=== PATIENT | male | born 1945 | race Caucasian/White ===

== ENCOUNTER 2017-07-27 12:36 | Inpatient (IN) ==
--- NOTE | 2017-07-27 12:42 | Emergency Department Note ---
Disposition Clinical Impression: Altered mental status Qualifiers: Altered mental status type: unspecified Qualified Code(s): R41.82 - Altered mental status, unspecified Urinary tract infection Qualifiers: Urinary tract infection type: acute cystitis Hematuria presence: without hematuria Qualified Code(s): N30.00 - Acute cystitis without hematuria Disposition: Admitted As Inpatient Condition: Good Time of Disposition: 15:39 Altered Mental Status HPI - General Chief Complaint: ED Altered Mental Status Stated Complaint: decreased responsiveness Time Seen by Provider: 07/27/17 12:38 Source: patient, EMS Mode of arrival: EMS Limitations: no limitations Nursing Notes Reviewed: Yes Vital Signs Reviewed: Yes - History of Present Illness HPI Narrative: 72-year-old fpc comes in stating not feeling well has had intermittent fevers states he feels like he did when he had diagnosis of UTI. On arrival here patient is awake and alert and answers questions appropriately. Report from fpc is that he is confused and less responsive. MD complaint: altered mental status Onset (ago): Just [employer] Pain Severity: mild Consistency of Symptoms: waxing and waning Associated symptoms: Reports: fever Treatments prior to arrival: other (None) - Related Data Home Medications Medication Instructions Recorded Confirmed Allopurinol [Zyloprim] 200 mg PO BID 06/14/15 07/27/17 Digoxin [Lanoxin] 0.125 mg PO DAILY 06/14/15 07/27/17 Diltiazem CD (24hr) [Cardizem CD] 120 mg PO DAILY 06/14/15 07/27/17 Fenofibrate 54 mg PO DAILY 06/14/15 07/27/17 Fluticasone Propionate Nasal 1 spray NS DAILY 06/14/15 07/27/17 [Flonase] Gabapentin [Neurontin] 600 mg PO HS 06/14/15 07/27/17 Metoprolol [Lopressor] 50 mg PO BID 06/14/15 07/27/17 Montelukast [Singulair] 10 mg PO HS 06/14/15 07/27/17 Omeprazole [PriLOSEC] 20 mg PO HS 06/14/15 07/27/17 Tamsulosin [Flomax] 0.4 mg PO DAILY 06/14/15 07/27/17 glipiZIDE [Glipizide] 15 mg PO DAILY 06/14/15 07/27/17 Gabapentin [Neurontin] 300 mg PO QAM 03/21/16 07/27/17 Erythromycin OPTH Oint 1 appl BOTH EYES HS 02/06/17 07/27/17 Furosemide [Lasix] 80 mg PO BID 02/06/17 07/27/17 Guaifenesin [Mucinex] 600 mg PO BID 02/06/17 07/27/17 Multivitamin [Multivitamins] 1 each PO DAILY 02/06/17 07/27/17 Primidone [Mysoline] 50 mg PO BID 02/06/17 07/27/17 Insulin DETEMIR [Levemir] 40 unit SQ HS 07/27/17 07/27/17 Insulin Regular, Human [Novolin R] 10 unit SQ TID 07/27/17 07/27/17 Lisinopril [Zestril] 5 mg PO DAILY 07/27/17 07/27/17 Oxybutynin [Ditropan] 5 mg PO QID 07/27/17 07/27/17 Oxycodone HCl 15 mg PO Q4H PRN 07/27/17 07/27/17 Polyethylene Glycol 3350 [MiraLAX 1 scoop PO DAILY PRN 07/27/17 07/27/17 Powder Bulk 17.9 Oz] Potassium Chloride [Klor-Con 10] 20 meq PO QID 07/27/17 07/27/17 Warfarin [Coumadin] 6.5 mg PO DAILY 07/27/17 07/27/17 glipiZIDE [Glipizide] 15 mg PO DAILY 07/27/17 07/27/17 Allergies Allergy/AdvReac Type Severity Reaction Status Date / Time Sulfa (Sulfonamide Allergy Mild Rash Verified 06/14/15 12:50 Antibiotics) All systems ED: reviewed and negative except as stated. Constitutional: Reports: fever. Denies: chills, weakness, weight change Eyes: Denies: eye pain, eye discharge, vision change ENT ED: Denies: ear pain, throat pain, dental pain, hearing loss, epistaxis, congestion, dysphagia Cardiovascular: Denies: chest pain, palpitations, dyspnea on exertion, edema, syncope Respiratory: Denies: cough, dyspnea, wheezes, hemoptysis, stridor Gastrointestinal: Denies: abdominal pain, nausea, vomiting, diarrhea, constipation, hematemesis, melena, hematochezia Genitourinary: Denies: urgency, dysuria, frequency, hematuria Musculoskeletal: Denies: back pain, neck pain, arthralgia, myalgia Integumentary: Denies: rash, abrasion, lesions Neurological: Reports: confusion. Denies: headache, weakness, numbness, paresthesias, abnormal gait, vertigo Psychiatric: Denies: anxiety, depression, suicidal thoughts, homicidal thoughts , auditory hallucinations, visual hallucinations Endocrine: Denies: fatigue Hematological/Lymphatic: Denies: easy bleeding, easy bruising Allergic/Immunologic: Denies: facial swelling, urticaria Past Medical History - Past Medical History Medical history: Reports: asthma, atrial fibrillation, CHF, coronary artery disease, DVT, diabetes, hyperlipidemia, hypertension Surgical history: Reports: cholecystectomy, knee replacement, pacemaker/AICD Psychiatric history: Reports: no psych history - Social History Smoking Status: Never smoker Smokeless Tobacco Status: No Alcohol use: Reports: none Drug use: Reports: none Physical Exam - General Limitations: no limitations General appearance: alert, in no apparent distress - Head Head exam: atraumatic, normocephalic, normal inspection - Eye Eye exam: Present: normal appearance, PERRL, EOMI - ENT ENT exam: normal exam, normal oropharynx, mucous membranes moist - Neck Neck exam: Present: normal inspection, full ROM, trachea midline - Chest Chest inspection: Present: normal inspection, symmetric chest wall rise - Respiratory Respiratory exam: Present: normal lung sounds bilaterally - Cardiovascular Cardiovascular exam: Present: regular rate, normal rhythm, normal heart sounds - Abdominal Exam Abdominal exam: Present: soft, Non-Tender. Absent: tenderness, distention, guarding, rebound, rigidity - Extremities Exam Extremities exam: Present: normal inspection, full ROM. Absent: tenderness, pedal edema - Expanded Lower Extremity Exam Gait: not tested/not observed - Back Exam Back exam: Present: normal inspection - Neurological Exam Neurological exam: Present: alert, oriented X3 - Psychiatric Psychiatric exam: Present: normal affect, normal mood - Skin Skin exam: Present: warm, dry, intact, normal color Course - Reevaluation(s) Reevaluation #1: 72-year-old with confusion history of UTI states similar symptoms with previous UTI. Time: 15:37 - Consultations Consultation #1: Discussed with Dr. Evans, admit Time: 15:38 Vital Signs O2 Sat by Pulse Oximetry 100 09/17 12:37 Temperature 99.1 F 07/28/17 07:47 Pulse Rate 72 07/28/17 07:47 Respiratory Rate 14 07/28/17 07:47 Blood Pressure 145/85 07/28/17 07:47 O2 Sat by Pulse Oximetry 98 07/28/17 07:47 Oxygen Delivery Oxygen Delivery Room Air Altered Mental Status - Lab Data Result diagrams: 07/28/17 03:50 07/28/17 03:50 Lab Results 07/27/17 07/27/17 07/27/17 Range/Units 12:39 12:56 12:56 WBC (4.3-11.1) K/mcL RBC (4.19-5.50) M/mcL Hgb (12.9-16.9) g/dL Hct (37.5-50.1) % MCV (83.0-100.0) fL MCH (28.0-33.3) pg MCHC (31.6-35.5) g/dL RDW (11.5-14.5) % Plt Count (140-400) K/mcL MPV (9.4-12.4) fL Immature Gran % (0-4) % Seg Neutrophils % % Lymphocytes % % Monocytes % % Eosinophils % % Basophils % % Neutrophils # (1.6-8.9) K/mcL Lymphocytes # (0.6-4.6) K/mcL Monocytes # (0.0-1.3) K/mcL Eosinophils # (0.0-0.6) K/mcL Basophils # (0.0-0.2) K/mcL PT (9.4-12.1) Seconds INR APTT (26.0-36.0) Seconds Sodium (136-145) mEq/L Potassium (3.5-4.5) mEq/L Chloride (98-109) mEq/L Carbon Dioxide (19-29) mEq/L BUN (8-26) mg/dL Creatinine (0.72-1.25) mg/dL Est GFR ( Amer) (> 60) Est GFR (Non-Af Amer) (> 60) BUN/Creatinine Ratio (6-26) Glucose (70-99) mg/dL POC Glucose 233 H (58-89) Calculated Osmolality (280-300) Calcium (8.6-10.8) mg/dL Total Bilirubin (0.2-1.2) mg/dL Direct Bilirubin (0.0-0.5) mg/dL Indirect Bilirubin (0.0-1.2) mg/dL AST (5-34) Units/L ALT (0-55) Units/L Alkaline Phosphatase (38-126) Units/L Troponin I (0-0.03) ng/mL Serum Total Protein (6.0-8.3) g/dL Albumin (3.5-5.0) g/dL Globulin (2.4-3.5) g/dL Albumin/Globulin Ratio (1.1-2.2) Urine Color Yellow (Yellow) Urine Clarity Turbid A (Clear) Urine pH 6.5 (5.0-8.0) pH Units Ur Specific [place] 1.012 (1.010-1.025) Urine Protein 30 H (Neg-Trace) mg/dL Urine Glucose (UA) Normal (Normal) mg/dL Urine Ketones Negative (Negative) mg/dL Urine Blood Moderate H (Negative) Urine Nitrite Positive A (Negative) Urine Bilirubin Negative (Negative) Urine Urobilinogen Normal (Normal) mg/dL Ur Leukocyte Esterase Large H (Negative) Urine Microscopic RBC 5-15 H (0-3) per hpf Urine Microscopic WBC TNTC H (0-3) per hpf Ur Squamous Epith Cells Few (None-Few) per lpf Urine Bacteria Many H (None-Few) per hpf Hyaline Casts None Seen (None-Few) per lpf Urine Yeast Few H (None Seen) per hpf Ur Culture Indicated? YES A (NO) Urine Opiates Screen Positive H (Jtmxgl=841) ng/mL Ur Barbiturates Screen Positive H (Lhcwnk=582) ng/mL Ur Phencyclidine Scrn Negative (Cutoff=25) ng/mL Ur Amphetamines Screen Negative (Qiiuiy=3572) ng/mL U Benzodiazepines Scrn Negative (Zvsgmi=057) ng/mL Urine Cocaine Screen Negative (Cutoff= 300) ng/mL U Marijuana (THC) Screen Negative (Cutoff = 50) ng/mL Ethyl Alcohol (0-10) mg/dL 07/27/17 07/27/17 07/27/17 Range/Units 13:14 13:14 13:14 WBC 14.8 H (4.3-11.1) K/mcL RBC 3.45 L (4.19-5.50) M/mcL Hgb 9.9 L (12.9-16.9) g/dL Hct 32.4 L (37.5-50.1) % MCV 93.9 (83.0-100.0) fL MCH 28.7 (28.0-33.3) pg MCHC 30.6 L (31.6-35.5) g/dL RDW 15.7 H (11.5-14.5) % Plt Count 190 (140-400) K/mcL MPV 10.2 (9.4-12.4) fL Immature Gran % 0.9 (0-4) % Seg Neutrophils % 80.3 % Lymphocytes % 12.3 % Monocytes % 5.2 % Eosinophils % 1.0 % Basophils % 0.3 % Neutrophils # 11.8 H (1.6-8.9) K/mcL Lymphocytes # 1.8 (0.6-4.6) K/mcL Monocytes # 0.8 (0.0-1.3) K/mcL Eosinophils # 0.2 (0.0-0.6) K/mcL Basophils # 0.1 (0.0-0.2) K/mcL PT 29.5 H (9.4-12.1) Seconds INR 2.7 APTT 49.8 H (26.0-36.0) Seconds Sodium 140 (136-145) mEq/L Potassium 5.2 H (3.5-4.5) mEq/L Chloride 112 H (98-109) mEq/L Carbon Dioxide 20 (19-29) mEq/L BUN 99 H (8-26) mg/dL Creatinine 2.08 H (0.72-1.25) mg/dL Est GFR ( Amer) 38 L (> 60) Est GFR (Non-Af Amer) 32 L (> 60) BUN/Creatinine Ratio 48 H (6-26) Glucose 242 H (70-99) mg/dL POC Glucose (58-89) Calculated Osmolality 329 H (280-300) Calcium 9.0 (8.6-10.8) mg/dL Total Bilirubin 0.4 (0.2-1.2) mg/dL Direct Bilirubin 0.2 (0.0-0.5) mg/dL Indirect Bilirubin 0.2 (0.0-1.2) mg/dL AST 33 (5-34) Units/L ALT 15 (0-55) Units/L Alkaline Phosphatase 63 (38-126) Units/L Troponin I (0-0.03) ng/mL Serum Total Protein 7.0 (6.0-8.3) g/dL Albumin 2.5 L (3.5-5.0) g/dL Globulin 4.5 H (2.4-3.5) g/dL Albumin/Globulin Ratio 0.6 L (1.1-2.2) Urine Color (Yellow) Urine Clarity (Clear) Urine pH (5.0-8.0) pH Units Ur Specific [place] (1.010-1.025) Urine Protein (Neg-Trace) mg/dL Urine Glucose (UA) (Normal) mg/dL Urine Ketones (Negative) mg/dL Urine Blood (Negative) Urine Nitrite (Negative) Urine Bilirubin (Negative) Urine Urobilinogen (Normal) mg/dL Ur Leukocyte Esterase (Negative) Urine Microscopic RBC (0-3) per hpf Urine Microscopic WBC (0-3) per hpf Ur Squamous Epith Cells (None-Few) per lpf Urine Bacteria (None-Few) per hpf Hyaline Casts (None-Few) per lpf Urine Yeast (None Seen) per hpf Ur Culture Indicated? (NO) Urine Opiates Screen (Whpiiz=119) ng/mL Ur Barbiturates Screen (Hcjbso=242) ng/mL Ur Phencyclidine Scrn (Cutoff=25) ng/mL Ur Amphetamines Screen (Fywpcj=1527) ng/mL U Benzodiazepines Scrn (Kjtkfd=257) ng/mL Urine Cocaine Screen (Cutoff= 300) ng/mL U Marijuana (THC) Screen (Cutoff = 50) ng/mL Ethyl Alcohol < 10 (0-10) mg/dL 07/27/17 07/27/17 Range/Units 13:14 18:05 WBC (4.3-11.1) K/mcL RBC (4.19-5.50) M/mcL Hgb (12.9-16.9) g/dL Hct (37.5-50.1) % MCV (83.0-100.0) fL MCH (28.0-33.3) pg MCHC (31.6-35.5) g/dL RDW (11.5-14.5) % Plt Count (140-400) K/mcL MPV (9.4-12.4) fL Immature Gran % (0-4) % Seg Neutrophils % % Lymphocytes % % Monocytes % % Eosinophils % % Basophils % % Neutrophils # (1.6-8.9) K/mcL Lymphocytes # (0.6-4.6) K/mcL Monocytes # (0.0-1.3) K/mcL Eosinophils # (0.0-0.6) K/mcL Basophils # (0.0-0.2) K/mcL PT (9.4-12.1) Seconds INR APTT (26.0-36.0) Seconds Sodium (136-145) mEq/L Potassium (3.5-4.5) mEq/L Chloride (98-109) mEq/L Carbon Dioxide (19-29) mEq/L BUN (8-26) mg/dL Creatinine (0.72-1.25) mg/dL Est GFR ( Amer) (> 60) Est GFR (Non-Af Amer) (> 60) BUN/Creatinine Ratio (6-26) Glucose (70-99) mg/dL POC Glucose 178 H (58-89) Calculated Osmolality (280-300) Calcium (8.6-10.8) mg/dL Total Bilirubin (0.2-1.2) mg/dL Direct Bilirubin (0.0-0.5) mg/dL Indirect Bilirubin (0.0-1.2) mg/dL AST (5-34) Units/L ALT (0-55) Units/L Alkaline Phosphatase (38-126) Units/L Troponin I 0.02 (0-0.03) ng/mL Serum Total Protein (6.0-8.3) g/dL Albumin (3.5-5.0) g/dL Globulin (2.4-3.5) g/dL Albumin/Globulin Ratio (1.1-2.2) Urine Color (Yellow) Urine Clarity (Clear) Urine pH (5.0-8.0) pH Units Ur Specific [place] (1.010-1.025) Urine Protein (Neg-Trace) mg/dL Urine Glucose (UA) (Normal) mg/dL Urine Ketones (Negative) mg/dL Urine Blood (Negative) Urine Nitrite (Negative) Urine Bilirubin (Negative) Urine Urobilinogen (Normal) mg/dL Ur Leukocyte Esterase (Negative) Urine Microscopic RBC (0-3) per hpf Urine Microscopic WBC (0-3) per hpf Ur Squamous Epith Cells (None-Few) per lpf Urine Bacteria (None-Few) per hpf Hyaline Casts (None-Few) per lpf Urine Yeast (None Seen) per hpf Ur Culture Indicated? (NO) Urine Opiates Screen (Zxvoti=587) ng/mL Ur Barbiturates Screen (Cuyxqe=961) ng/mL Ur Phencyclidine Scrn (Cutoff=25) ng/mL Ur Amphetamines Screen (Qsamhc=4043) ng/mL U Benzodiazepines Scrn (Mrkfaj=397) ng/mL Urine Cocaine Screen (Cutoff= 300) ng/mL U Marijuana (THC) Screen (Cutoff = 50) ng/mL Ethyl Alcohol (0-10) mg/dL - EKG Data EKG attestation: Yes I reviewed and interpreted this EKG. EKG results narrative: Paced rhythm TPA Checklist - LKW: 3-4.5 hrs Add. Warnings/Precautions Patient/family understanding: The patient/family members have been counseled and understood the risk, benefit , and alternatives of treatment.
[2017-07-27 13:22] LABS: Bilirubin,Urine Negative (Negative); Blood,Urine Moderate (Negative); Clarity,Urine Turbid (Clear); Color,Urine Yellow (Yellow); Glucose,Urine (UA) Normal (Normal); Ketones,Urine Negative (Negative); Leukocyte Esterase,Urine Large (Negative); Nitrite,Urine Positive (Negative); PH,Urine 6.5 pH Units (5.0-8.0); Protein,Urine 30 mg/dL (Neg-Trace); Specific Gravity,Urine 1.012 (1.010-1.025); Urobilinogen,Urine Normal (Normal)
[2017-07-27 13:23] LABS: Bacteria,Urine Many per hpf (None-Few); WBC,Urine TNTC per hpf (0-3)
[2017-07-27 13:26] LABS: Basophils # 0.1 K/mcL (0.0-0.2); Basophils % 0.3 %; Eosinophils # 0.2 K/mcL (0.0-0.6); Hematocrit 32.4 % (37.5-50.1); Hemoglobin 9.9 g/dL (12.9-16.9); Immature Granulocytes % 0.9 % (0-4); Lymphocytes # 1.8 K/mcL (0.6-4.6); Lymphocytes % 12.3 %; Mean Corpuscular HGB Conc 30.6 g/dL (31.6-35.5); Mean Corpuscular Hemoglobin 28.7 pg (28.0-33.3); Mean Corpuscular Volume 93.9 fL (83.0-100.0); Mean Platelet Volume 10.2 fL (9.4-12.4); Monocytes # 0.8 K/mcL (0.0-1.3); Monocytes % 5.2 %; Neutrophils # 11.8 K/mcL (1.6-8.9); Platelet Count 190 K/mcL (140-400); Red Blood Count 3.45 M/mcL (4.19-5.50); Red Cell Distribution Width 15.7 % (11.5-14.5); Segmented Neutrophils % 80.3 %
[2017-07-27 13:27] LABS: Amphetamine Screen,Urine Negative ng/mL (Cutoff=1000); Barbiturate Screen,Urine Positive ng/mL (Cutoff=200); Benzodiazepines Screen,Urine Negative ng/mL (Cutoff=200); Cannabinoid Screen,Urine Negative ng/mL (Cutoff = 50); Cocaine Screen,Urine Negative ng/mL (Cutoff= 300); Opiate Screen,Urine Positive ng/mL (Cutoff=300); Phencyclidine Screen,Urine Negative ng/mL (Cutoff=25)
[2017-07-27 13:31] LABS: INR 2.7; Prothrombin Time 29.5 Seconds (9.4-12.1)
[2017-07-27 13:34] LABS: Activated Partial Thrombo Time 49.8 Seconds (26.0-36.0)
[2017-07-27 13:35] LABS: Alanine Aminotransferase 15 Units/L (0-55); Albumin 2.5 g/dL (3.5-5.0); Albumin/Globulin Ratio 0.6 (1.1-2.2); Alkaline Phosphatase 63 Units/L (38-126); Aspartate Amino Transferase 33 Units/L (5-34); Bilirubin,Direct 0.2 mg/dL (0.0-0.5); Bilirubin,Indirect 0.2 mg/dL (0.0-1.2); Bilirubin,Total 0.4 mg/dL (0.2-1.2); Carbon Dioxide 20 mEq/L (19-29); Chloride 112 mEq/L (98-109); Globulin 4.5 g/dL (2.4-3.5); Glucose 242 mg/dL (70-99); Potassium 5.2 mEq/L (3.5-4.5); Sodium 140 mEq/L (136-145); eGFR For African Americans 38 (> 60); eGFR For Non-African Americans 32 (> 60)
[2017-07-27 13:38] LABS: Ethanol < 10 mg/dL (0-10)
[2017-07-27 14:18] LABS: Hyaline Casts,Urine None Seen per lpf (None-Few)
[2017-07-27 14:19] LABS: Squamous Epithelial Cell,Urine Few per lpf (None-Few); Yeast,Urine Few per hpf (None Seen)
[2017-07-27] MEDS ORDERED: Lidocaine 1% 20 ML MDV INFILT ONE (14:47)
[2017-07-27 14:54] LABS: BUN/Creatinine Ratio 48 (6-26); Blood Urea Nitrogen 99 mg/dL (8-26); Osmolality,Calculated 329 (280-300)
[2017-07-27] MEDS ORDERED: Naloxone 0.4 MG/ML INJ IVP PRN (15:58)
[2017-07-27] MEDS ORDERED: Ondansetron 4 MG/2 ML VIAL IVP PRN (16:01)
[2017-07-27] MEDS ORDERED: *HR* Dextrose 50 % in Water (Syg) 50 ML SYRINGE IVP PRN (16:15)
[2017-07-27] MEDS ORDERED: D5% in Water 1,000 ML IVC PRN (16:15)
[2017-07-27] MEDS ORDERED: Dextrose Gel 15 GM PO PRN ×2 (16:15)
--- NOTE | 2017-07-27 16:30 | Internal Med History&Physical ---
<Alicia Roman - Last Filed: 07/27/17 16:47> Date of Encounter: 07/27/17 Time of Encounter: 16:19 Assessment and Plan (1) Metabolic encephalopathy Current visit: Yes Status: Acute 1 patient has been experiencing increased lethargy as well as confusion and tremors. CT of head was negative. Urinalysis did reveal a UTI which could be contributing to his symptoms. We will continue with IV fluids and antibiotics monitor for any changes (2) Complicated UTI (urinary tract infection) Current visit: Yes Status: Acute 1 patient has a chronic indwelling Munguia catheter due to urinary retention secondary to BPH. History of UTIs he has been experiencing increased lethargy and confusion. Urinalysis does indicate UTI. Blood cultures and urine culture sent. Previous urine culture dated 07/10/2017 grew Proteus and it was sensitive to Rocephin. We will continue with IV Rocephin for now 2 we will give IV fluids overnight 3 we will change out Munguia catheter (3) Nonhealing surgical wound Current visit: No Status: Chronic 1 is followed as outpatient with wound clinic for nonhealing surgical wound to his coccyx. We will continue as outpatient consult as needed Qualifiers: Encounter type: subsequent encounter Qualified Code(s): T81.89XD - Other complications of procedures, not elsewhere classified, subsequent encounter (4) Chronic diastolic CHF (congestive heart failure) Current visit: No Status: Acute 1 she has a history of chronic diastolic area. Last echo revealed EF 55-60%. Presently does not appear to be overloaded he is on Lasix which we will hold for Neisseria to be over diuresed. We will give some gentle hydration overnight and resume Lasix once she is back to baseline (5) DM (diabetes mellitus), type 2 Current visit: No Status: Acute 1 we will hold glyburide for now Accu-Cheks before meals at bedtime Will continue with Levemir and add sliding scale Diabetic diet Qualifiers: Diabetes mellitus complication status: with kidney complications Diabetes mellitus complication detail: with chronic kidney disease Diabetes mellitus residential insulin use: with residential use Chronic kidney disease stage: stage 3 (moderate) Qualified Code(s): E11.22 - Type 2 diabetes mellitus with diabetic chronic kidney disease; N18.3 - Chronic kidney disease, stage 3 ( moderate); Z79.4 - longterm (current) use of insulin (6) History of atrial fibrillation Current visit: No Status: Acute Patient has history of atrial fibrillation. We will continue with the digoxin and Cardizem and metoprolol. He is also on Coumadin presently INR is 2.7 we will continue with his Coumadin pharmacy to dose (7) Acute on chronic kidney failure Current visit: Yes Status: Acute Presently patient's creatinine is 2 which is the highest it has ever been. Appears at baseline serum 1.2-1.7. He states he has had poor oral intake as well as patient is on lisinopril and gabapentin. We will hold lisinopril metformin and cut his gabapentin and half. 2 to monitor creatinine 2 we will give gentle IV hydration overnight 3 we will avoid nephrotoxins 4 we will renal dose antibiotics 5 monitor intake and output daily weights Qualifiers: Acute renal failure type: unspecified Chronic kidney disease stage: stage 3 (moderate) Qualified Code(s): N17.9 - Acute kidney failure, unspecified; N18.3 - Chronic kidney disease, stage 3 (moderate) (8) DVT prophylaxis Current visit: No Status: Acute Patient is on Coumadin Internal Medicine - H&P: HPI Chief complaint: Altered mental state Admitted From: Emergency Dept Plans for Post Hospital Care: Transfer Jail Facility History of present illness: Mr. Franco is a 72 year old male aspect with history of atrial fibrillation diabetes hypertension CK D stage III diastolic heart failure nonhealing surgical wound to coccyx. Information obtained from medical records as well as family who are at bedside due to patient's mental state. According to family patient is usually alert oriented 2 in appropriate. Since Thursday he has become more lethargic and confused and they have noticed some increase in his tremoring which they state happens whenever he is sick. No fevers or chills nausea vomiting or diarrhea. He has had a decrease in his appetite as well as oral intake. No cough shortness of breath or sputum production. He does have a chronic indwelling Munguia due to her near retention secondary to BPH. He was brought to the ER for evaluation. According to the ER records CT of head was negative chest x-rays questionable for vascular congestion . Lab work leukocytosis WBC 14.8 chemistry potassium 5.2 BUN was 99 creatinine 2.08 glucose 242 UA indicative of UTI with blood nitrates and Luke's. Tox screen positive for opiates and barbiturates which patient was prescribed. Blood cultures and urine cultures were obtained. He was given IV Rocephin and has been admitted for further workup and evaluation. Presently patient is lethargic he does awake to verbal stimuli and answers questions appropriately. He is is aware of his name surroundings. Clinically he appears dry with tacky mucous membranes, furrowed tongue. Lungs sounds are clear heart sounds are regular S1-S2 with no rubs clicks, murmurs noted. Abdomen is soft and nontender he does have a Munguia catheter present draining slightly cloudy yellow urine. He has +1 edema to his lower extremities bilaterally which really states is chronic. She is hemodynamically stable at this time. I reviewed this case with Dr. Evans who agrees with plan. Past Med Surg Social Fam HX - Past Medical History Medical history: asthma, atrial fibrillation, CHF, coronary artery disease, DVT , diabetes, hyperlipidemia, hypertension Psychiatric history: no psych history - Past Surgical History Surgical History: cholecystectomy, knee replacement, pacemaker/AICD - Social History Smoking Status: Never smoker Smokeless Tobacco Status: No Alcohol use: none Drug use: none - Family History Father Living Status: Age at : 54 Cause of : Brain cancer Mother Living Status: Age at : 48 Cause of : Heart disease Internal Medicine - H&P: Meds Allopurinol [Zyloprim] 200 mg PO BID 06/14/15 [History] Digoxin [Lanoxin] 0.125 mg PO DAILY 06/14/15 [History] Diltiazem CD (24hr) [Cardizem CD] 120 mg PO DAILY 06/14/15 [History] Fenofibrate 54 mg PO DAILY 06/14/15 [History] Fluticasone Propionate Nasal [Flonase] 1 spray NS DAILY 06/14/15 [History] Gabapentin [Neurontin] 600 mg PO HS 06/14/15 [History] Metoprolol [Lopressor] 50 mg PO BID 06/14/15 [History] Montelukast [Singulair] 10 mg PO HS 06/14/15 [History] Omeprazole [PriLOSEC] 20 mg PO HS 06/14/15 [History] Tamsulosin [Flomax] 0.4 mg PO DAILY 06/14/15 [History] glipiZIDE [Glipizide] 15 mg PO DAILY 06/14/15 [History] Gabapentin [Neurontin] 300 mg PO QAM 03/21/16 [History] Erythromycin OPTH Oint 1 appl BOTH EYES HS 02/06/17 [History] Furosemide [Lasix] 80 mg PO BID 02/06/17 [History] Guaifenesin [Mucinex] 600 mg PO BID 02/06/17 [History] Multivitamin [Multivitamins] 1 each PO DAILY 02/06/17 [History] Primidone [Mysoline] 50 mg PO BID 02/06/17 [History] Insulin DETEMIR [Levemir] 40 unit SQ HS 07/27/17 [History] Insulin Regular, Human [Novolin R] 10 unit SQ TID 07/27/17 [History] Lisinopril [Zestril] 5 mg PO DAILY 07/27/17 [History] Oxybutynin [Ditropan] 5 mg PO QID 07/27/17 [History] Oxycodone HCl 15 mg PO Q4H PRN 07/27/17 [History] Polyethylene Glycol 3350 [MiraLAX Powder Bulk 17.9 Oz] 1 scoop PO DAILY PRN [History] Potassium Chloride [Klor-Con 10] 20 meq PO QID 07/27/17 [History] Warfarin [Coumadin] 6.5 mg PO DAILY 07/27/17 [History] glipiZIDE [Glipizide] 15 mg PO DAILY 07/27/17 [History] 3 Allergy/AdvReac Type Severity Reaction Status Date / Time Sulfa (Sulfonamide Allergy Mild Rash Verified 06/14/15 12:50 Antibiotics) All Systems PM: A 10-system review of systems was performed and is negative for pertinent findings except as documented above in the HPI. - Constitutional Constitutional: fatigue, no chills, no fever(s), no night sweats - EENT Eyes: no change in vision, no discharge, no pain, no photophobia Nose, mouth and throat: no dysphagia, no nasal discharge, no neck pain, no sore throat - Cardiovascular Cardiovascular ROS IM: no chest pain, no diaphoresis, no dyspnea, no lightheadedness, no palpitations, no syncope - Respiratory Respiratory: no cough, no dyspnea, no wheezing, no excessive phlegm production - Gastrointestinal Gastrointestinal: no abdominal pain, no diarrhea, no hematemesis, no hematochezia, no melena, no nausea, no vomiting - Musculoskeletal Musculoskeletal ROS IM: no numbness, no tingling - Neurological Neurological ROS: no confusion, no convulsions, no focal weakness, no numbness, no tingling, no tremor(s) - Hematologic/Lymphatic Hematologic/Lymphatic: no easy bruising - Constitutional Vitals: Temp Pulse Resp BP Pulse Ox 98 F 77 18 133/69 96 07/27/17 12:38 07/27/17 14:43 07/27/17 14:43 07/27/17 14:43 07/27/17 14:43 General appearance: Present: A&O X 2, answers questions appropriately - Head Head exam: Present: atraumatic, normocephalic - Eye Eye exam: Present: PERRL, conjuntiva pink, sclera anicteric Pupils: Present: PERRL - Neck Neck exam general surgery: Present: supple, trachea midline. Absent: lymphadenopathy - Respiratory Respiratory exam: Present: CTAB. Absent: accessory muscle use, rales, rhonchi, wheezes - GI/Abdominal GI/Abdominal exam: Present: normal bowel sounds, soft, no peritoneal signs. Absent: distended, tenderness - Extremities Exam Extremities exam: Present: pedal edema, warm, radial pulses palpable and symmetrical. Absent: calf tenderness, cyanotic - Neurological Exam Neurological exam: Present: CN II-XII intact, oriented X3, no focal deficits. Absent: pronater drift, facial droop, speech deficit - Skin Skin exam: Present: dry, intact Internal Med - H&P Results - Labs CBC & Chem 7: 07/27/17 13:14 07/27/17 13:14 Labs: Short CBC 07/27/17 Range/Units 13:14 WBC 14.8 H (4.3-11.1) K/mcL Hgb 9.9 L (12.9-16.9) g/dL Hct 32.4 L (37.5-50.1) % Plt Count 190 (140-400) K/mcL Neutrophils # 11.8 H (1.6-8.9) K/mcL BMP 07/27/17 13:14 Sodium 140 Potassium 5.2 H Chloride 112 H Carbon Dioxide 20 BUN 99 H Creatinine 2.08 H Glucose 242 H Calcium 9.0 Cardiac Enzymes 07/27/17 Range/Units 13:14 Troponin I 0.02 (0-0.03) ng/mL Liver Function 07/27/17 Range/Units 13:14 Total Bilirubin 0.4 (0.2-1.2) mg/dL Direct Bilirubin 0.2 (0.0-0.5) mg/dL AST 33 (5-34) Units/L ALT 15 (0-55) Units/L Alkaline Phosphatase 63 (38-126) Units/L Albumin 2.5 L (3.5-5.0) g/dL Urine 07/27/17 Range/Units 12:56 Urine Color Yellow (Yellow) Urine Clarity Turbid A (Clear) Urine pH 6.5 (5.0-8.0) pH Units Ur Specific [place] 1.012 (1.010-1.025) Urine Protein 30 H (Neg-Trace) mg/dL Urine Glucose (UA) Normal (Normal) mg/dL - EKG Data EKG shows normal: sinus rhythm - Impressions ITS Impressions Chest X-Ray 07/27/17 12:39 IMPRESSION: Prominent appearing upper mediastinum, which may be somewhat projectional given patient's rotation. An acute vascular abnormality however cannot be excluded. If clinically indicated, this could be further evaluated with a CT scan of the chest with contrast. Mediastinal lymphadenopathy with also be a consideration. Cardiomegaly with pulmonary vascular congestion. D/ / Edi King MD / Edi King MD Interpreting Provider: Edi King MD Head CT 07/27/17 12:39 IMPRESSION: 1. No acute intracranial abnormality. 2. Moderate chronic small vessel ischemic changes. D/ / Shaun Alonso MD / Shaun Alonso MD Interpreting Provider: Shaun Alonso MD - Diagnostic Studies Other Images Additional comments: Chest X-Ray 07/27/17 12:39 IMPRESSION: Prominent appearing upper mediastinum, which may be somewhat projectional given patient's rotation. An acute vascular abnormality however cannot be excluded. If clinically indicated, this could be further evaluated with a CT scan of the chest with contrast. Mediastinal lymphadenopathy with also be a consideration. Cardiomegaly with pulmonary vascular congestion. D/ / Edi King MD / Edi King MD Interpreting Provider: Edi King MD Head CT 07/27/17 12:39 IMPRESSION: 1. No acute intracranial abnormality. 2. Moderate chronic small vessel ischemic changes. D/ / Shaun Alonso MD / Shaun Alonso MD Interpreting Provider: Shaun Alonso MD <EvansAbdelrahman - Last Filed: 07/27/17 18:06> Date of Encounter: 07/27/17 Internal Medicine - H&P: HPI History of present illness: Mr. Franco is a 72 year old male All Systems PM: A 10-system review of systems was performed and is negative for pertinent findings except as documented above in the HPI. - Constitutional Vitals: Temp Pulse Resp BP Pulse Ox 98 F 77 20 104/63 96 07/27/17 12:38 07/27/17 14:43 07/27/17 16:30 07/27/17 16:30 07/27/17 14:43 Internal Med - H&P Results - Labs CBC & Chem 7: 07/27/17 13:14 07/27/17 13:14 - Attending Attestation I personally interviewed and examined this pt. I agree wiht the findings, assessment and plan of SHELL GRADER Abel and our discussion is reflected in her H&P. Await urology consult. Hold NArcs. CT and ABG reviewed. Suspect AMS due to Narcs and UTI. I discussed the case with the family in detail.
[2017-07-27] MEDS ORDERED: Warfarin perPT PO SCH (18:00)
[2017-07-27] MEDS: Insulin LISPRO 300 UNITS/3 ML VIAL SQ SCH ×2 (19:28→21:24)
[2017-07-27] MEDS: 0.9 % Sodium Chloride 1,000 ML IVC SCH (19:42)
[2017-07-27] MEDS: Warfarin 4 MG, Warfarin 2.5 MG PO SCH (19:42)
[2017-07-27] MEDS: Acetaminophen 325 MG TABLET PO PRN (19:45)
[2017-07-27] MEDS: Primidone 50 MG TABLET PO SCH (21:35)
[2017-07-27] MEDS: Erythromycin OPTH Oint BOTH EYES SCH (21:35)
[2017-07-27] MEDS: Insulin DETEMIR 100 UNIT/ML X5UNITS SQ SCH (21:35)
[2017-07-28 04:15] LABS: Basophils # 0.1 K/mcL (0.0-0.2); Basophils % 0.4 %; Eosinophils # 0.2 K/mcL (0.0-0.6); Eosinophils % 1.9 %; Hematocrit 31.8 % (37.5-50.1); Hemoglobin 9.9 g/dL (12.9-16.9); Immature Granulocytes % 0.7 % (0-4); Lymphocytes # 1.7 K/mcL (0.6-4.6); Lymphocytes % 14.7 %; Mean Corpuscular HGB Conc 31.1 g/dL (31.6-35.5); Mean Corpuscular Volume 93.3 fL (83.0-100.0); Mean Platelet Volume 9.7 fL (9.4-12.4); Monocytes # 0.8 K/mcL (0.0-1.3); Neutrophils # 8.6 K/mcL (1.6-8.9); Platelet Count 186 K/mcL (140-400); Red Blood Count 3.41 M/mcL (4.19-5.50); Red Cell Distribution Width 15.8 % (11.5-14.5); Segmented Neutrophils % 75.3 %
[2017-07-28 04:16] LABS: INR 2.7; Prothrombin Time 29.9 Seconds (9.4-12.1)
[2017-07-28 04:25] LABS: Calcium 8.9 mg/dL (8.6-10.8); Potassium 4.6 mEq/L (3.5-4.5)
[2017-07-28] MEDS: 0.9 % Sodium Chloride 1,000 ML IVC SCH (05:08)
[2017-07-28] MEDS ORDERED: *HR* Warfarin 1 MG TABLET PO SCH (09:00)
[2017-07-28] MEDS: Acetaminophen 325 MG TABLET PO PRN ×2 (09:45→22:11)
[2017-07-28] MEDS: *HR* Digoxin 0.125 MG TABLET PO SCH (09:45)
[2017-07-28] MEDS: Multivit/Ca/Min/Fe/FA 1 TAB TABLET PO SCH (09:45)
[2017-07-28] MEDS: Diltiazem CD (24hr) 120 MG CAPSULE PO SCH (09:45)
[2017-07-28] MEDS: Gabapentin 300 MG CAPSULE PO SCH (09:45)
[2017-07-28] MEDS: Fenofibrate 54 MG TABLET PO SCH (09:45)
[2017-07-28] MEDS: Primidone 50 MG TABLET PO SCH ×2 (09:46→22:02)
[2017-07-28] MEDS: Insulin LISPRO 300 UNITS/3 ML VIAL SQ SCH ×4 (09:56→22:03)
--- NOTE | 2017-07-28 13:54 | Palliative - Consult Note ---
Date of Encounter: 07/28/17 Time of Encounter: 11:00 - Assessment and Plan (1) Nonhealing surgical wound Current Visit: No Status: Chronic Assessment and plan: The patient desires to continue current therapy for these wounds. Surgery has already been consulted. And per surgery. Qualifiers: Encounter type: subsequent encounter Qualified Code(s): T81.89XD - Other complications of procedures, not elsewhere classified, subsequent encounter (2) Counseling regarding goals of care Current Visit: Yes Status: Acute Assessment and plan: Patient has been clear in the past and continues to be clear that he wishes to be a full code and get full aggressive care. I discussed this with both the patient and the family they are all in agreement. With regards to goals of care patient realizes that he will probably never be able to completely return home, although he would certainly like to at some point in time. Currently is for him to return to [facility]. We will continue is a long-term care resident. Does wish to be treated aggressively for his urinary tract infection which is recurrent, all as for his skin ulcers. As the patient is clear about his CODE STATUS which is full. he is also backed up by his family. we will not change that, his goals of care been thoroughly discussed and established. I discussed this further with work. As the patient is having no trouble with pain or any other symptom problems at this time palliative care will go ahead and sign off please feel free to reconsult if we can help in any way. (3) Urinary tract infection Current Visit: Yes Status: Acute Assessment and plan: Cultures thus far are showing gram-negative rods. The patient has been getting ceftriaxone plan per hospitalist team. Qualifiers: Urinary tract infection type: acute cystitis Hematuria presence: without hematuria Qualified Code(s): N30.00 - Acute cystitis without hematuria (4) Metabolic encephalopathy Current Visit: Yes Status: Acute Assessment and plan: Per the family this oftentimes occurs when he has a urinary tract infection and does seem to be clearing. He can alert and oriented 2 at this time and this per family is where he usually is. He is able to actually give me quite a bit of history based on talking to his daughter that this is probably showing improvement. Already noted since the patient's metabolic encephalopathy does appear to be improving, the plan is for him to return to the longterm at [facility]. And his CODE STATUS is established as full palliative care is going to sign off please reconsult if we can help in any way. Palliative-CN HPI - Data of Consult Patient: new to practice Requesting Physician: Andrea Curry MD Primary Care Provider: PCP NONE - Consult Narrative Palliative Care/Comfort Measures: Palliative care History of present illness: Mr. Franco is a 72 year old male The patient has been a long-term at [facility] since 2016 in November. Had multiple urinary tract infections as well as pneumonias and has chronic nonhealing wounds his sacrum ischio him and on his legs. He is being followed by surgery for this. The past several days he has had increasing status change lethargic and more confused. With increased tremoring. Oftentimes happens when either he has change in medication or he gets a urinary tract infection. (Incidentally he has a urinary tract infection now) Corti to medical records the patient has a history of the being oriented 2. Artley he is not complaining of any problems. No cough or shortness of breath no sputum production is have a chronic indwelling Munguia catheter which is secondary to retention and BPH on admission he was found to have a white count of 14,800 and was indicative of a urinary tract infection and currently the culture shows gram -negative rods he is on Rocephin IV currently. Also has chronic weakness and is not able to get up and walk around in a motorized odor. On talking with the patient's daughter he does not have advanced directives done, has always maintained he wishes to be a full code has been consistent throughout all of his hospitalizations. 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 Please see the [facility] plan. At this time the patient denies any shortness of breath and denies any pain denies any nausea vomiting or diarrhea. Does not feel constipated but could not tell me when his last bowel movement was. CC: Andrea Curry MD Altered mental status Past Med Surg Social Fam HX - Past Medical History Medical history: asthma, atrial fibrillation, CHF, coronary artery disease, DVT , diabetes, hyperlipidemia, hypertension Psychiatric history: no psych history - Past Surgical History Surgical History: cholecystectomy, knee replacement, pacemaker/AICD - Social History Smoking Status: Never smoker Smokeless Tobacco Status: No Alcohol use: none Drug use: none - Family History Father Living Status: Age at : 54 Cause of : Brain cancer Mother Living Status: Age at : 48 Cause of : Heart disease Medications and Allergies Allopurinol [Zyloprim] 200 mg PO BID 06/14/15 [History] Digoxin [Lanoxin] 0.125 mg PO DAILY 06/14/15 [History] Diltiazem CD (24hr) [Cardizem CD] 120 mg PO DAILY 06/14/15 [History] Fenofibrate 54 mg PO DAILY 06/14/15 [History] Fluticasone Propionate Nasal [Flonase] 1 spray NS DAILY 06/14/15 [History] Gabapentin [Neurontin] 600 mg PO HS 06/14/15 [History] Metoprolol [Lopressor] 50 mg PO BID 06/14/15 [History] Montelukast [Singulair] 10 mg PO HS 06/14/15 [History] Omeprazole [PriLOSEC] 20 mg PO HS 06/14/15 [History] Tamsulosin [Flomax] 0.4 mg PO DAILY 06/14/15 [History] glipiZIDE [Glipizide] 15 mg PO DAILY 06/14/15 [History] Gabapentin [Neurontin] 300 mg PO QAM 03/21/16 [History] Erythromycin OPTH Oint 1 appl BOTH EYES HS 02/06/17 [History] Furosemide [Lasix] 80 mg PO BID 02/06/17 [History] Guaifenesin [Mucinex] 600 mg PO BID 02/06/17 [History] Multivitamin [Multivitamins] 1 each PO DAILY 02/06/17 [History] Primidone [Mysoline] 50 mg PO BID 02/06/17 [History] Insulin DETEMIR [Levemir] 40 unit SQ HS 07/27/17 [History] Insulin Regular, Human [Novolin R] 10 unit SQ TID 07/27/17 [History] Lisinopril [Zestril] 5 mg PO DAILY 07/27/17 [History] Oxybutynin [Ditropan] 5 mg PO QID 07/27/17 [History] Oxycodone HCl 15 mg PO Q4H PRN 07/27/17 [History] Polyethylene Glycol 3350 [MiraLAX Powder Bulk 17.9 Oz] 1 scoop PO DAILY PRN [History] Potassium Chloride [Klor-Con 10] 20 meq PO QID 07/27/17 [History] Warfarin [Coumadin] 6.5 mg PO DAILY 07/27/17 [History] glipiZIDE [Glipizide] 15 mg PO DAILY 07/27/17 [History] 3 Allergy/AdvReac Type Severity Reaction Status Date / Time Sulfa (Sulfonamide Allergy Mild Rash Verified 06/14/15 12:50 Antibiotics) - Constitutional Constitutional ROS PAL: decreased appetite, fatigue, no chills, no fever(s) - EENT Eyes: no discharge, no pain Ears: no ear discharge, no ear pain Ears, nose, mouth, throat: no facial pain, no hoarseness, no lip swelling - Cardiovascular Cardiovascular ROS: no chest pain, no chest pain at rest, no chest pain with activity - Respiratory Respiratory: no cough, no dyspnea, no hemoptysis - Gastrointestinal Gastrointestinal: no abdominal pain, no diarrhea, no nausea, no vomiting - Genitourinary Genitourinary ROS male: no urinary frequency, no urinary hesitancy, no urinary incontinence - Musculoskeletal Musculoskeletal ROS IM: no back pain, no joint swelling - Integumentary ROS Integumentary: skin ulcer, sores - Neurological Neurological ROS: confusion, tremor(s), no burning sensations, no convulsions, no disequilibrium, no dizziness, no focal weakness - Psychiatric Psychiatric general PM: no depression, no homicidal ideation, no suicidal ideation - Endocrine Endocrine IM: as per HPI (Positive for diabetes) Palliative Care-Exam - Constitutional Vitals: Temp Pulse Resp BP Pulse Ox 98.5 F 71 15 113/68 94 07/28/17 11:20 07/28/17 11:20 07/28/17 11:20 07/28/17 11:20 07/28/17 11:20 General appearance: Present: no acute distress - Head Head Exam: Present: atraumatic, normal inspection - Eye Eye exam: Present: EOMI, normal appearance, PERRL - ENT ENT exam: Present: mucous membranes moist - Neck Neck exam: Present: full ROM - Respiratory Respiratory exam: Present: CTAB - Cardiovascular Cardiovascular exam: Present: RRR - GI/Abdominal Exam GI/Abdominal exam: Present: normal bowel sounds, soft. Absent: tenderness - Catheter Type: Urethral (Munguia) - Extremities Exam Extremities exam: Present: pedal edema. Absent: normal inspection, tenderness - Neurological Exam Neurological exam: Present: alert. Absent: oriented X3 (Oriented 2 otherwise is appropriate.) - Psychiatric Psychiatric exam: Present: normal affect, normal mood. Absent: agitated, anxious, depressed - Skin Skin exam: Present: dry, warm Internal Medicine - CN: Reslt - Labs CBC & Chem 7: 07/28/17 03:50 07/28/17 03:50 Labs: Short CBC 07/28/17 Range/Units 03:50 WBC 11.4 H (4.3-11.1) K/mcL Hgb 9.9 L (12.9-16.9) g/dL Hct 31.8 L (37.5-50.1) % Plt Count 186 (140-400) K/mcL Neutrophils # 8.6 (1.6-8.9) K/mcL BMP 07/28/17 03:50 Sodium 143 Potassium 4.6 H Chloride 115 H Carbon Dioxide 21 BUN 91 H Creatinine 1.97 H Glucose 198 H Calcium 8.9 - ABG Interpretation ABG results: PT/INR, D-dimer PT 29.9 Seconds (9.4-12.1) H 07/28/17 03:50 Consult Discharge Plan - Plan Referrals: NONE,PCP [Primary Care Provider] - Palliative Quality Palliative Quality: Screen for Code Status: Yes, Screen for Goals of Care: Yes, Screen for Pain: Yes, If Pain Regimen Started, Initiate Bowel Regimen: Yes, Screen for Nausea/Vomitting: Yes
[2017-07-28] MEDS: Meropenem 1,000 MG in 0.9 % Sodium Chloride Mini Bag 100 ML IVPB SCH (14:41)
--- NOTE | 2017-07-28 14:41 | Event Note ---
Date of Encounter: 07/28/17 Time of Encounter: 14:15 Patient has been followed in wound care with Dr. Ponce for management of coccyx wound. I have assessed the coccyx wound and there are no signs/symptoms of active wound infection. Recommend continuing wound care orders and orders have been initiated. Wound care consult for ordering of specialty bed. Turn every 2 hours. May continue to follow-up in outpatient wound care with Dr. Ponce.
[2017-07-28] MEDS: Fluticasone Propionate Nasal 50 MCG/SPRAY BOTTLE NS SCH (14:51)
--- NOTE | 2017-07-28 15:12 | Internal Med Progress Note ---
<ShamarloustanDominick godfrey - Last Filed: 07/28/17 16:04> Date of Encounter: 07/28/17 Time of Encounter: 10:45 - Assessment and plan (1) Metabolic encephalopathy Current Visit: Yes Status: Acute Assessment and plan: Patient has been lethargic and confused. Tremors noted. CT of head was negative. Encephalopahty likely secondary to UTI. - Continue IV fluids. - On day 2 of antibiotics. Switched rocephin to meropenem due to history of ESBL. (2) Complicated UTI (urinary tract infection) Current Visit: Yes Status: Acute Assessment and plan: patient has a chronic indwelling Munguia catheter due to urinary retention secondary to BPH. History of UTIs he has been experiencing increased lethargy and confusion. Urinalysis does indicate UTI. Blood cultures and urine culture sent. - Switched rocephin to meropenem due to history of ESBL. - Continue IV fluids. (3) Nonhealing surgical wound Current Visit: No Status: Chronic Assessment and plan: Followed as outpatient with wound clinic for nonhealing surgical wound to his coccyx. - Surgery on board to monitor wound. - Wound care on board. Qualifiers: Encounter type: subsequent encounter Qualified Code(s): T81.89XD - Other complications of procedures, not elsewhere classified, subsequent encounter (4) Chronic diastolic CHF (congestive heart failure) Current Visit: No Status: Acute Assessment and plan: He has a history of chronic diastolic area. Last echo revealed EF 55-60%. - Lasix on hold due to renal function. - Continue gentle IV hydration. (5) DM (diabetes mellitus), type 2 Current Visit: No Status: Acute Assessment and plan: -Hold glyburide for now - Accu-Cheks before meals at bedtime. - Continue with Levemir and sliding scale. - Diabetic diet Qualifiers: Diabetes mellitus complication status: with kidney complications Diabetes mellitus complication detail: with chronic kidney disease Diabetes mellitus oracle endeca consultant insulin use: with oracle endeca consultant use Chronic kidney disease stage: stage 3 (moderate) Qualified Code(s): E11.22 - Type 2 diabetes mellitus with diabetic chronic kidney disease; N18.3 - Chronic kidney disease, stage 3 ( moderate); Z79.4 - gluing pressman (current) use of insulin (6) History of atrial fibrillation Current Visit: No Status: Acute Assessment and plan: History of A-fib. Current INR is 2.7 and therapeutic. - Continue coumadin, cardizem, digoxin, and metoprolol. (7) Acute on chronic kidney failure Current Visit: Yes Status: Acute Assessment and plan: Creatinine is 1.97, which has decreased from 2.08 from presentation. Baseline appears to be from 1.2-1.7. - Hold lisinopril and metformin due to renal function. - Continue gabapentin at half dose. - Monitor renal function. - Gentle IV hydration. - Avoid nephrotoxins. - Renally dose antibiotics. - Monitor I/Os. At -400 ml today. Weight has decreased from 136 kg to 135 kg since presentation. Qualifiers: Acute renal failure type: unspecified Chronic kidney disease stage: stage 3 (moderate) Qualified Code(s): N17.9 - Acute kidney failure, unspecified; N18.3 - Chronic kidney disease, stage 3 (moderate) (8) DVT prophylaxis Current Visit: No Status: Acute Assessment and plan: On coumadin. - Subjective Interval history: Patient is a 72 M with a PMH of A-fib, DM, HTN, CKD, diastolic HF, BPH, and unhealed surgical wound of coccyx that presented to the ED for AMS and lethargy. Patient was diagnosed with metabolic encephalopathy secondary to complicated UTI. When seen today, patient was A&Ox1. He admits to a dry cough and sore throat. He denies shortness of breath, chest pain, fever, chills, nausea, and vomiting. - Constitutional Vitals: Temp Pulse Resp BP Pulse Ox 98.5 F 71 15 113/68 94 07/28/17 11:20 07/28/17 11:20 07/28/17 11:20 07/28/17 11:20 07/28/17 11:20 General appearance: Present: A&O X 2, answers questions appropriately - Respiratory Respiratory exam: Present: CTAB. Absent: respiratory distress, rhonchi, wheezes , tachypnea - Cardiovascular Cardiovascular exam: Present: RRR, +S1, +S2. Absent: diastolic murmur, systolic murmur - GI/Abdominal GI/Abdominal exam: Present: normal bowel sounds, soft. Absent: guarding, rebound, tenderness - Extremities Exam Extremities exam: Present: normal capillary refill, pedal edema. Absent: cyanotic Additional comments: Non-pitting edema of lower extremities bilaterally. Pedal pulses intact bilaterally. Decreased sensation in both feet, R foot worse compared to L foot. Internal Medicine: Result - Labs CBC & Chem 7: 07/28/17 03:50 07/28/17 03:50 Labs: Short CBC 07/28/17 Range/Units 03:50 WBC 11.4 H (4.3-11.1) K/mcL Hgb 9.9 L (12.9-16.9) g/dL Hct 31.8 L (37.5-50.1) % Plt Count 186 (140-400) K/mcL Neutrophils # 8.6 (1.6-8.9) K/mcL BMP 07/28/17 03:50 Sodium 143 Potassium 4.6 H Chloride 115 H Carbon Dioxide 21 BUN 91 H Creatinine 1.97 H Glucose 198 H Calcium 8.9 - ABG Interpretation ABG results: PT/INR, D-dimer PT 29.9 Seconds (9.4-12.1) H 07/28/17 03:50 Consult Discharge Plan - Plan Referrals: NONE,PCP [Primary Care Provider] - <Andrea Curry - Last Filed: 07/28/17 19:58> Date of Encounter: 07/28/17 - Constitutional Vitals: Temp Pulse Resp BP Pulse Ox 99.2 F 75 15 120/71 94 07/28/17 18:38 07/28/17 18:38 07/28/17 18:38 07/28/17 18:38 07/28/17 18:38 Internal Medicine: Result - Labs CBC & Chem 7: 07/28/17 03:50 07/28/17 03:50 Labs: Short CBC 07/28/17 Range/Units 03:50 WBC 11.4 H (4.3-11.1) K/mcL Hgb 9.9 L (12.9-16.9) g/dL Hct 31.8 L (37.5-50.1) % Plt Count 186 (140-400) K/mcL Neutrophils # 8.6 (1.6-8.9) K/mcL BMP 07/28/17 03:50 Sodium 143 Potassium 4.6 H Chloride 115 H Carbon Dioxide 21 BUN 91 H Creatinine 1.97 H Glucose 198 H Calcium 8.9 - ABG Interpretation ABG results: PT/INR, D-dimer PT 29.9 Seconds (9.4-12.1) H 07/28/17 03:50 - Attending Attestation I examined this patient and my medical decision-making was reviewed with the Resident Physician. I agree with the documented findings, disposition and treatment plan as described except to the extent set forth below. Patient cannot provide adequate history due to encephalopathy and altered mental status On exam I found a large serpiginous unstageable coccygeal ulcer with moderate amounts of bleeding as well as a right buttock stage II small 2 x 1 cm pressure ulcer. It is my first day taking care of this patient. All problems are new to me today.
[2017-07-28] MEDS: Warfarin 4 MG, Warfarin 2.5 MG PO SCH (17:12)
--- NOTE | 2017-07-28 18:36 | Electrocardiograph Report ---
[place] [address] Test Date: 2017-07-27 Pat Name: Ottoniel Franco Department: 104 Room: 3B11 Gender: M Topographical Drafter: : 1945 Requested By: Christ Hammond Order Number: [id number] Reading MD: Diane Christian Measurements Intervals [place] Rate: 70 P: MT: 0 QRS: -74 QRSD: 202 T: 112 QT: 442 QTc: 462 Interpretive Statements ELECTRONIC VENTRICULAR PACEMAKER ABNORMAL RHYTHM ECG Electronically Signed On 07-28-2017 18:35:20 EDT by Diane Christian
[2017-07-28] MEDS: Erythromycin OPTH Oint BOTH EYES SCH (22:03)
[2017-07-28] MEDS: Insulin DETEMIR 100 UNIT/ML X5UNITS SQ SCH (22:11)
[2017-07-29] MEDS: Meropenem 1,000 MG in 0.9 % Sodium Chloride Mini Bag 100 ML IVPB SCH ×2 (01:12→13:10)
[2017-07-29 04:06] LABS: INR 2.8; Prothrombin Time 30.8 Seconds (9.4-12.1)
[2017-07-29 06:10] LABS: Basophils # 0.1 K/mcL (0.0-0.2); Basophils % 0.5 %; Eosinophils # 0.2 K/mcL (0.0-0.6); Eosinophils % 1.5 %; Hematocrit 32.4 % (37.5-50.1); Hemoglobin 9.7 g/dL (12.9-16.9); Immature Granulocytes % 0.7 % (0-4); Immature Platelets 2.1 % (1.1-6.1); Lymphocytes # 1.6 K/mcL (0.6-4.6); Lymphocytes % 14.9 %; Mean Corpuscular HGB Conc 29.9 g/dL (31.6-35.5); Mean Corpuscular Hemoglobin 28.2 pg (28.0-33.3); Mean Corpuscular Volume 94.2 fL (83.0-100.0); Mean Platelet Volume 10.5 fL (9.4-12.4); Monocytes # 0.9 K/mcL (0.0-1.3); Monocytes % 8.6 %; Neutrophils # 8.1 K/mcL (1.6-8.9); Platelet Count 215 K/mcL (140-400); Red Blood Count 3.44 M/mcL (4.19-5.50); Red Cell Distribution Width 15.7 % (11.5-14.5); Segmented Neutrophils % 73.8 %
[2017-07-29 06:40] LABS: Calcium 9.1 mg/dL (8.6-10.8); Magnesium 2.3 mg/dL (1.6-2.6)
[2017-07-29] MEDS: Gabapentin 300 MG CAPSULE PO SCH (09:34)
[2017-07-29] MEDS: Diltiazem CD (24hr) 120 MG CAPSULE PO SCH (09:34)
[2017-07-29] MEDS: Fenofibrate 54 MG TABLET PO SCH (09:35)
[2017-07-29] MEDS: *HR* Digoxin 0.125 MG TABLET PO SCH (09:35)
[2017-07-29] MEDS: Multivit/Ca/Min/Fe/FA 1 TAB TABLET PO SCH (09:35)
[2017-07-29] MEDS: Primidone 50 MG TABLET PO SCH ×2 (09:35→21:31)
[2017-07-29] MEDS: Insulin LISPRO 300 UNITS/3 ML VIAL SQ SCH ×3 (09:41→17:58)
[2017-07-29] MEDS: Fluticasone Propionate Nasal 50 MCG/SPRAY BOTTLE NS SCH (09:43)
--- NOTE | 2017-07-29 13:51 | Internal Med Progress Note ---
<AnjaliDominick blair - Last Filed: 07/29/17 15:52> Date of Encounter: 07/29/17 Time of Encounter: 13:45 - Assessment and plan (1) Metabolic encephalopathy Current Visit: Yes Status: Acute Assessment and plan: Patient has been lethargic and confused. Tremors noted. CT of head was negative. Encephalopahty likely secondary to UTI. - Continue IV fluids. - On day 3 of antibiotics. On meropenem due to history of ESBL. (2) Complicated UTI (urinary tract infection) Current Visit: Yes Status: Acute Assessment and plan: patient has a chronic indwelling Munguia catheter due to urinary retention secondary to BPH. History of UTIs he has been experiencing increased lethargy and confusion. Urinalysis does indicate UTI. Blood cultures and urine culture sent. - On meropenem due to history of ESBL. Day 3 of antibiotics. - Continue IV fluids. (3) Nonhealing surgical wound Current Visit: No Status: Chronic Assessment and plan: Followed as outpatient with wound clinic for nonhealing surgical wound to his coccyx. - Surgery on board to monitor wound. - Wound care on board. Qualifiers: Encounter type: subsequent encounter Qualified Code(s): T81.89XD - Other complications of procedures, not elsewhere classified, subsequent encounter (4) Chronic diastolic CHF (congestive heart failure) Current Visit: No Status: Acute Assessment and plan: He has a history of chronic diastolic area. Last echo revealed EF 55-60%. - Lasix on hold due to renal function. Renal function continuing to improve. Creatinine decreased from 1.97 to 1.61 from yesterday. Baseline seems to be from 1.2 to 1.7. - Continue gentle IV hydration. (5) DM (diabetes mellitus), type 2 Current Visit: No Status: Acute Assessment and plan: -Hold glyburide for now - Accu-Cheks before meals at bedtime. - Continue with Levemir and sliding scale. - Diabetic diet Qualifiers: Diabetes mellitus complication status: with kidney complications Diabetes mellitus complication detail: with chronic kidney disease Diabetes mellitus statistical modeler insulin use: with statistical modeler use Chronic kidney disease stage: stage 3 (moderate) Qualified Code(s): E11.22 - Type 2 diabetes mellitus with diabetic chronic kidney disease; N18.3 - Chronic kidney disease, stage 3 ( moderate); Z79.4 - steersman (current) use of insulin (6) History of atrial fibrillation Current Visit: No Status: Acute Assessment and plan: History of A-fib. Current INR is 2.8 and therapeutic. - Continue coumadin, cardizem, digoxin, and metoprolol. (7) Acute on chronic kidney failure Current Visit: Yes Status: Acute Assessment and plan: Creatinine is 1.61, which has decreased from 2.08 from presentation. Baseline appears to be from 1.2-1.7. - Hold lisinopril and metformin due to renal function. - Continue gabapentin at half dose. - Monitor renal function. - Gentle IV hydration. - Avoid nephrotoxins. - Renally dose antibiotics. - Monitor I/Os. At -650 ml today. Weight has decreased from 136 kg to 135 kg since presentation. Qualifiers: Acute renal failure type: unspecified Chronic kidney disease stage: stage 3 (moderate) Qualified Code(s): N17.9 - Acute kidney failure, unspecified; N18.3 - Chronic kidney disease, stage 3 (moderate) (8) Hyperkalemia Current Visit: Yes Status: Acute Assessment and plan: Potassium level at 5 today. - Continue to monitor. - Placed on renal diet. (9) DVT prophylaxis Current Visit: No Status: Acute Assessment and plan: On coumadin. - Subjective Interval history: Patient is a 72 M with a PMH of A-fib, DM, HTN, CKD, diastolic HF, BPH, and unhealed surgical wound of coccyx that presented to the ED for AMS and lethargy. Patient was diagnosed with metabolic encephalopathy secondary to complicated UTI. When seen today, patient was A&Ox2. He denies any cough. He denies shortness of breath, chest pain, fever, chills, nausea, and vomiting. - Constitutional Vitals: Temp Pulse Resp BP Pulse Ox 98.3 F 85 15 124/74 91 07/29/17 11:27 07/29/17 11:27 07/29/17 11:27 07/29/17 11:07/29/17 11:27 General appearance: Present: A&O X 2, answers questions appropriately - Respiratory Respiratory exam: Present: CTAB. Absent: respiratory distress, rhonchi, wheezes , tachypnea - Cardiovascular Cardiovascular exam: Present: RRR, +S1, +S2. Absent: diastolic murmur, systolic murmur - GI/Abdominal GI/Abdominal exam: Present: normal bowel sounds, soft. Absent: guarding, rebound, tenderness - Extremities Exam Extremities exam: Present: pedal edema (Non-pitting edema of lower extremities bilaterally. ), radial pulses palpable and symmetrical. Absent: cyanotic, tenderness Additional comments: Decreased sensation of R foot versus L foot. Pedal pulses intact bilaterally. Internal Medicine: Result - Labs CBC & Chem 7: 07/29/17 02:20 07/29/17 02:20 Labs: Short CBC 07/29/17 Range/Units 02:20 WBC 11.0 (4.3-11.1) K/mcL Hgb 9.7 L (12.9-16.9) g/dL Hct 32.4 L (37.5-50.1) % Plt Count 215 (140-400) K/mcL Neutrophils # 8.1 (1.6-8.9) K/mcL BMP 07/29/17 02:20 Sodium 144 Potassium 5.0 H Chloride 114 H Carbon Dioxide 21 BUN 68 H D Creatinine 1.61 H Glucose 199 H Calcium 9.1 - ABG Interpretation ABG results: PT/INR, D-dimer PT 30.8 Seconds (9.4-12.1) H 07/29/17 02:20 Consult Discharge Plan - Plan Referrals: NONE,PCP [Primary Care Provider] - <Andrea Curry - Last Filed: 07/29/17 17:01> Date of Encounter: 07/29/17 - Constitutional Vitals: Temp Pulse Resp BP Pulse Ox 98.3 F 85 15 124/74 91 07/29/17 11:27 07/29/17 11:27 07/29/17 11:27 07/29/17 11:27 07/29/17 11:27 Internal Medicine: Result - Labs CBC & Chem 7: 07/29/17 02:20 07/29/17 02:20 Labs: Short CBC 07/29/17 Range/Units 02:20 WBC 11.0 (4.3-11.1) K/mcL Hgb 9.7 L (12.9-16.9) g/dL Hct 32.4 L (37.5-50.1) % Plt Count 215 (140-400) K/mcL Neutrophils # 8.1 (1.6-8.9) K/mcL BMP 07/29/17 02:20 Sodium 144 Potassium 5.0 H Chloride 114 H Carbon Dioxide 21 BUN 68 H D Creatinine 1.61 H Glucose 199 H Calcium 9.1 - ABG Interpretation ABG results: PT/INR, D-dimer PT 30.8 Seconds (9.4-12.1) H 07/29/17 02:20 - Attending Attestation I examined this patient and my medical decision-making was reviewed with the Resident Physician. I agree with the documented findings, disposition and treatment plan as described except to the extent set forth below. His altered mental status has significantly improved from yesterday. We will continue with meropenem. IV fluids. Monitor mental status. Aspiration precautions.
[2017-07-29] MEDS: Warfarin 4 MG, Warfarin 2.5 MG PO SCH (17:58)
[2017-07-29] MEDS ORDERED: Insulin LISPRO 300 UNITS/3 ML VIAL SQ SCH (17:59)
[2017-07-29] MEDS: Insulin DETEMIR 100 UNIT/ML X5UNITS SQ SCH (21:30)
[2017-07-29] MEDS: Erythromycin OPTH Oint BOTH EYES SCH (21:32)
[2017-07-30 04:44] LABS: Basophils # 0.1 K/mcL (0.0-0.2); Basophils % 0.4 %; Eosinophils # 0.3 K/mcL (0.0-0.6); Eosinophils % 2.5 %; Hematocrit 31.1 % (37.5-50.1); Hemoglobin 9.6 g/dL (12.9-16.9); Immature Granulocytes % 0.9 % (0-4); Lymphocytes # 1.9 K/mcL (0.6-4.6); Lymphocytes % 16.7 %; Mean Corpuscular HGB Conc 30.9 g/dL (31.6-35.5); Mean Corpuscular Hemoglobin 28.4 pg (28.0-33.3); Mean Platelet Volume 9.6 fL (9.4-12.4); Monocytes # 0.9 K/mcL (0.0-1.3); Monocytes % 8.3 %; Neutrophils # 7.9 K/mcL (1.6-8.9); Platelet Count 197 K/mcL (140-400); Red Blood Count 3.38 M/mcL (4.19-5.50); Red Cell Distribution Width 15.1 % (11.5-14.5); Segmented Neutrophils % 71.2 %
[2017-07-30 04:46] LABS: Prothrombin Time 32.8 Seconds (9.4-12.1)
[2017-07-30 04:52] LABS: BUN/Creatinine Ratio 40 (6-26); Blood Urea Nitrogen 51 mg/dL (8-26); Carbon Dioxide 22 mEq/L (19-29); Chloride 111 mEq/L (98-109); Glucose 180 mg/dL (70-99); Osmolality,Calculated 310 (280-300); Sodium 141 mEq/L (136-145); eGFR For African Americans > 60 (> 60); eGFR For Non-African Americans 55 (> 60)
[2017-07-30 04:55] LABS: Potassium 3.8 mEq/L (3.5-4.5)
[2017-07-30] MEDS ORDERED: Ertapenem 1,000 MG in 0.9 % Sodium Chloride Mini Bag 100 ML IVPB SCH (06:00)
[2017-07-30] MEDS: Multivit/Ca/Min/Fe/FA 1 TAB TABLET PO SCH (09:09)
[2017-07-30] MEDS: Fenofibrate 54 MG TABLET PO SCH (09:09)
[2017-07-30] MEDS: Gabapentin 300 MG CAPSULE PO SCH (09:09)
[2017-07-30] MEDS: Primidone 50 MG TABLET PO SCH (09:09)
[2017-07-30] MEDS: Diltiazem CD (24hr) 120 MG CAPSULE PO SCH (09:10)
[2017-07-30] MEDS: *HR* Digoxin 0.125 MG TABLET PO SCH (09:19)
[2017-07-30] MEDS: Insulin LISPRO 300 UNITS/3 ML VIAL SQ SCH ×2 (09:19→13:37)
--- NOTE | 2017-07-30 09:52 | Internal Med Progress Note ---
<ShamarloustanDominick godfrey - Last Filed: 07/30/17 16:14> Date of Encounter: 07/30/17 Time of Encounter: 09:40 - Assessment and plan (1) Metabolic encephalopathy Status: Acute Assessment and plan: Patient has been lethargic and confused, but seems to be improving. Tremors noted. CT of head was negative. Encephalopahty likely secondary to UTI. - Continue IV fluids. - On day 4 of antibiotics. On meropenem due to history of ESBL. (2) Complicated UTI (urinary tract infection) Status: Acute Assessment and plan: Patient has a chronic indwelling Munguia catheter due to urinary retention secondary to BPH. History of UTIs he has been experiencing increased lethargy and confusion. Urinalysis does indicate UTI. Blood cultures reveals no growth. Urine culture is positive for Morganella kurtis with sensitivity to ertaopenem. - On meropenem due to history of ESBL. Day 4 of antibiotics. - Continue IV fluids. (3) Nonhealing surgical wound Status: Chronic Assessment and plan: Followed as outpatient with wound clinic for nonhealing surgical wound to his coccyx. - Surgery on board to monitor wound. - Wound care on board. Qualifiers: Encounter type: subsequent encounter Qualified Code(s): T81.89XD - Other complications of procedures, not elsewhere classified, subsequent encounter (4) Chronic diastolic CHF (congestive heart failure) Status: Acute Assessment and plan: He has a history of chronic diastolic area. Last echo revealed EF 55-60%. - Lasix on hold due to renal function. Renal function continuing to improve. Creatinine decreased from 1.97 to 1.61 from yesterday. Baseline seems to be from 1.2 to 1.7. - Continue gentle IV hydration. (5) DM (diabetes mellitus), type 2 Status: Acute Assessment and plan: Patient glucose was 199 yesterday. He was switched to medium dose insulin yesterday afternoon. Glucose today has dropped to 180. -Hold glyburide for now - Accu-Cheks before meals at bedtime. - Continue with Levemir and sliding scale. - Diabetic diet. Qualifiers: Diabetes mellitus complication status: with kidney complications Diabetes mellitus complication detail: with chronic kidney disease Diabetes mellitus residential insulin use: with terminal gauger supervisor use Chronic kidney disease stage: stage 3 (moderate) Qualified Code(s): E11.22 - Type 2 diabetes mellitus with diabetic chronic kidney disease; N18.3 - Chronic kidney disease, stage 3 ( moderate); Z79.4 - manager terminal (current) use of insulin (6) History of atrial fibrillation Status: Acute Assessment and plan: History of A-fib. Current INR is 3 and therapeutic. - Continue coumadin, cardizem, digoxin, and metoprolol. (7) Acute on chronic kidney failure Status: Acute Assessment and plan: Creatinine is 1.28, which has decreased from 2.08 from presentation. Baseline appears to be from 1.2-1.7. - Hold lisinopril and metformin due to renal function. - Continue gabapentin at half dose. - Monitor renal function. - Gentle IV hydration. - Avoid nephrotoxins. - Renally dose antibiotics. - Monitor I/Os. At -480 ml today. Weight has decreased from 136 kg to 135 kg since presentation. Qualifiers: Acute renal failure type: unspecified Chronic kidney disease stage: stage 3 (moderate) Qualified Code(s): N17.9 - Acute kidney failure, unspecified; N18.3 - Chronic kidney disease, stage 3 (moderate) (8) DVT prophylaxis Status: Acute Assessment and plan: On coumadin. - Subjective Interval history: Patient is a 72 M with a PMH of A-fib, DM, HTN, CKD, diastolic HF, BPH, and unhealed surgical wound of coccyx that presented to the ED for AMS and lethargy. Patient was diagnosed with metabolic encephalopathy secondary to complicated UTI. When seen today, patient was A&Ox2. He seemed more active than yesterday and was able to ambulate a bit for my physical exam. He denies any cough. He denies shortness of breath, chest pain, fever, chills, nausea, and vomiting. Addendum: When I mentioned patient was able to ambulate, I was referring to his ability to sit up on the bed, but patient has not been able to stand or walk at all. - Constitutional Vitals: Temp Pulse Resp BP Pulse Ox 98.4 F 96 17 136/73 95 07/30/17 07:25 07/30/17 07:25 07/30/17 07:25 07/30/17 07:25 07/30/17 07:25 General appearance: Present: A&O X 2, pleasant, answers questions appropriately - Respiratory Respiratory exam: Present: CTAB. Absent: respiratory distress, rhonchi, wheezes , tachypnea - Cardiovascular Cardiovascular exam: Present: RRR, +S1, +S2. Absent: diastolic murmur, systolic murmur - GI/Abdominal GI/Abdominal exam: Present: normal bowel sounds, soft, tenderness (Minor discomfort in all quadrants on light palpation. ). Absent: guarding, rebound Internal Medicine: Result - Labs CBC & Chem 7: 07/30/17 04:38 07/30/17 04:38 Labs: Short CBC 07/30/17 Range/Units 04:38 WBC 11.1 (4.3-11.1) K/mcL Hgb 9.6 L (12.9-16.9) g/dL Hct 31.1 L (37.5-50.1) % Plt Count 197 (140-400) K/mcL Neutrophils # 7.9 (1.6-8.9) K/mcL BMP 07/30/17 04:38 Sodium 141 Potassium 3.8 D Chloride 111 H Carbon Dioxide 22 BUN 51 H Creatinine 1.28 H Glucose 180 H Calcium 9.0 - ABG Interpretation ABG results: PT/INR, D-dimer PT 32.8 Seconds (9.4-12.1) H 07/30/17 04:38 Consult Discharge Plan - Plan Instructions: Urinary Tract Infection in Men (DC) Referrals: NONE,PCP [Primary Care Provider] - Prescriptions: Ertapenem [INVanz] 1,000 mg IVPB DAILY #11 vial <ChristopherasterAndrea - Last Filed: 07/30/17 17:34> Date of Encounter: 07/30/17 - Constitutional Vitals: Temp Pulse Resp BP Pulse Ox 98.7 F 83 17 129/61 95 07/30/17 10:53 07/30/17 10:53 07/30/17 10:53 07/30/17 10:53 07/30/17 10:53 Internal Medicine: Result - Labs CBC & Chem 7: 07/30/17 04:38 07/30/17 04:38 Labs: Short CBC 07/30/17 Range/Units 04:38 WBC 11.1 (4.3-11.1) K/mcL Hgb 9.6 L (12.9-16.9) g/dL Hct 31.1 L (37.5-50.1) % Plt Count 197 (140-400) K/mcL Neutrophils # 7.9 (1.6-8.9) K/mcL BMP 07/30/17 04:38 Sodium 141 Potassium 3.8 D Chloride 111 H Carbon Dioxide 22 BUN 51 H Creatinine 1.28 H Glucose 180 H Calcium 9.0 - ABG Interpretation ABG results: PT/INR, D-dimer PT 32.8 Seconds (9.4-12.1) H 07/30/17 04:38 - Attending Attestation I examined this patient and my medical decision-making was reviewed with the Resident Physician. I agree with the documented findings, disposition and treatment plan as described except to the extent set forth below. The patient is non-ambulatory
[2017-07-30 10:56] VITALS: BP 129/61
--- NOTE | 2017-07-30 11:17 | Discharge Summary ---
<Dominick Ambrocio - Last Filed: 07/30/17 16:16> Date of Encounter: 07/30/17 Time of Encounter: 09:40 - Discharge Diagnosis (1) Metabolic encephalopathy Priority: Primary Status: Acute (2) Complicated UTI (urinary tract infection) Priority: Primary Status: Acute (3) Nonhealing surgical wound Priority: Primary Status: Chronic Qualifiers: Encounter type: subsequent encounter Qualified Code(s): T81.89XD - Other complications of procedures, not elsewhere classified, subsequent encounter (4) Chronic diastolic CHF (congestive heart failure) Priority: Primary Status: Acute (5) DM (diabetes mellitus), type 2 Priority: Primary Status: Acute Qualifiers: Diabetes mellitus complication status: with kidney complications Diabetes mellitus complication detail: with chronic kidney disease Diabetes mellitus usp insulin use: with usp use Chronic kidney disease stage: stage 3 (moderate) Qualified Code(s): E11.22 - Type 2 diabetes mellitus with diabetic chronic kidney disease; N18.3 - Chronic kidney disease, stage 3 ( moderate); Z79.4 - 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 block assembler (current) use of insulin (6) History of atrial fibrillation Priority: Primary Status: Acute (7) Acute on chronic kidney failure Priority: Primary Status: Acute Qualifiers: Acute renal failure type: unspecified Chronic kidney disease stage: stage 3 (moderate) Qualified Code(s): N17.9 - Acute kidney failure, unspecified; N18.3 - Chronic kidney disease, stage 3 (moderate) (8) DVT prophylaxis Priority: Primary Status: Acute - Discharge Medications Prescriptions: Ertapenem [INVanz] 1,000 mg IVPB DAILY #11 vial Home Medications: Allopurinol [Zyloprim] 200 mg PO BID 06/14/15 [History] Digoxin [Lanoxin] 0.125 mg PO DAILY 06/14/15 [History] Diltiazem CD (24hr) [Cardizem CD] 120 mg PO DAILY 06/14/15 [History] Fenofibrate 54 mg PO DAILY 06/14/15 [History] Fluticasone Propionate Nasal [Flonase] 1 spray NS DAILY 06/14/15 [History] Gabapentin [Neurontin] 600 mg PO HS 06/14/15 [History] Metoprolol [Lopressor] 50 mg PO BID 06/14/15 [History] Montelukast [Singulair] 10 mg PO HS 06/14/15 [History] Omeprazole [PriLOSEC] 20 mg PO HS 06/14/15 [History] Tamsulosin [Flomax] 0.4 mg PO DAILY 06/14/15 [History] glipiZIDE [Glipizide] 15 mg PO DAILY 06/14/15 [History] Gabapentin [Neurontin] 300 mg PO QAM 03/21/16 [History] Erythromycin OPTH Oint 1 appl BOTH EYES HS 02/06/17 [History] Furosemide [Lasix] 80 mg PO BID 02/06/17 [History] Guaifenesin [Mucinex] 600 mg PO BID 02/06/17 [History] Multivitamin [Multivitamins] 1 each PO DAILY 02/06/17 [History] Primidone [Mysoline] 50 mg PO BID 02/06/17 [History] Insulin DETEMIR [Levemir] 40 unit SQ HS 07/27/17 [History] Insulin Regular, Human [Novolin R] 10 unit SQ TID 07/27/17 [History] Lisinopril [Zestril] 5 mg PO DAILY 07/27/17 [History] Oxybutynin [Ditropan] 5 mg PO QID 07/27/17 [History] Oxycodone HCl 15 mg PO Q4H PRN 07/27/17 [History] Polyethylene Glycol 3350 [MiraLAX Powder Bulk 17.9 Oz] 1 scoop PO DAILY PRN [History] Potassium Chloride [Klor-Con 10] 20 meq PO QID 07/27/17 [History] Ertapenem [INVanz] 1,000 mg IVPB DAILY #11 vial 07/30/17 [Rx] Warfarin perPT [Coumadin perPT] 1 each PO RPHPROT each 07/30/17 [Rx] Allergies/Adverse Reactions: 3 Allergy/AdvReac Type Severity Reaction Status Date / Time Sulfa (Sulfonamide Allergy Mild Rash Verified 06/14/15 12:50 Antibiotics) Date of admission: 07/27/17 18:38 Primary care physician: PCP NONE Consults: 07/27/17 19:32 Consult to Invasive Line Access Team [CONS] Routine Reason for Consult: limited vascular access Line Type: EPIV 07/28/17 10:13 Consult to Palliative Care [CONS] Routine Comment: Consulting Provider: Palliative Care Deyanira Reason for Consult: Infection and non healing wound Call Completed: No 07/28/17 14:04 Consult to Contact Center Analyst [CONS] Routine Reason for SW Consult: Patient will need assistance with medical power of corporate representative. 07/28/17 14:33 Consult to Wound Care [CONS] Routine Reason for Consult: specialty bed Time Notified: 14:35 Call Completed: No Discharging clinician: Andrea Curry ([email or web address]) Anticipated date of discharge: 07/30/17 - Patient Status Disposition: Transfer SNF Condition: Good Functional capacity at discharge: wheelchair bound Overall status at discharge: patient is progressing back to baseline - Discharge Instructions Instructions: Urinary Tract Infection in Men (DC) Follow Up With: NONE,PCP [Primary Care Provider] - - Diet and Activity Activity: as per physical therapy Diet: diabetic diet, low fat, low cholesterol Interval History: Mr. Franco is a 72 year old male with a PMH of A-fib, DM, HTN, CKD, diastolic HF , BPH, and unhealed surgical wound of coccyx that presented to the ED for AMS and lethargy. Hospital course: Mr. Franco is a 72 year old male with a PMH of A-fib, DM, HTN, CKD, diastolic HF , BPH, and unhealed surgical wound of coccyx that presented to the ED for AMS and lethargy. Patient was diagnosed with metabolic encephalopathy secondary to complicated UTI. Patient was put on rocephin initially but then switched to meropenem due to history of urine culture being positive for ESBL. Subsequently , Urine culture was positive for Morganella kurtis with sensitivity to ertaopenem. Patient will continue meropenem to give a total of 14 days on antibiotics. Blood culture showed no growth. Patient also presented with acute on chronic kidney failure. His creatinine was elevated at 2.08 but gradually improved with IVF and renally dosing medications. His creatinine today was at 1.28. When seen today, patient was A&Ox2. He seemed more active than yesterday and was able to sit up on his bed for my physical exam. However, patient is unable to stand or walk. He denies any cough. He denies shortness of breath, chest pain, fever, chills, nausea, and vomiting. Patient will be discharged to an ECF. He should follow-up with his PCP. - Time Spent with Patient Total time spent providing and/or coordinating discharge services: - Constitutional Vitals: Temp Pulse Resp BP Pulse Ox 98.7 F 83 17 129/61 95 07/30/17 10:53 07/30/17 10:53 07/30/17 10:53 07/30/17 10:53 07/30/17 10:53 General appearance: Present: A&O X 2, pleasant, answers questions appropriately - Respiratory Respiratory exam: Present: CTAB. Absent: respiratory distress, rhonchi, wheezes , tachypnea - Cardiovascular Cardiovascular exam: Present: RRR, +S1, +S2. Absent: diastolic murmur, systolic murmur - GI/Abdominal GI/Abdominal exam: Present: normal bowel sounds, soft, tenderness (Minor discomfort in all quadrants on light palpation. ). Absent: guarding, rebound - Extremities Exam Extremities exam: Present: pedal edema (Non-pitting edema of lower extremities. ), radial pulses palpable and symmetrical. Absent: cyanotic, tenderness Additional comments: Decreased sensation on lower extremities (L worse than R). Pedal pulses intact bilaterally. <Andrea Curry - Last Filed: 07/30/17 17:33> Date of Encounter: 07/30/17 Date of admission: 07/27/17 18:38 Primary care physician: PCP NONE Consults: 07/27/17 19:32 Consult to Invasive Line Access Team [CONS] Routine Reason for Consult: limited vascular access Line Type: EPIV 07/28/17 10:13 Consult to Palliative Care [CONS] Routine Comment: Consulting Provider: Palliative Care Deyanira Reason for Consult: Infection and non healing wound Call Completed: No 07/28/17 14:04 Consult to Contact Center Analyst [CONS] Routine Reason for SW Consult: Patient will need assistance with medical power of corporate representative. 07/28/17 14:33 Consult to Wound Care [CONS] Routine Reason for Consult: specialty bed Time Notified: 14:35 Call Completed: No Hospital course: Mr. Franco is a 72 year old male - Time Spent with Patient Total time spent providing and/or coordinating discharge services: - Constitutional Vitals: Temp Pulse Resp BP Pulse Ox 98.7 F 83 17 129/61 95 07/30/17 10:53 07/30/17 10:53 07/30/17 10:53 07/30/17 10:53 07/30/17 10:53 - Attending Attestation I examined this patient and my medical decision-making was reviewed with the Resident Physician. I agree with the documented findings, disposition and treatment plan as described except to the extent set forth below. Patient's mental status has tremendously improved, now back to baseline. He denies abdominal pain nausea vomiting. Agent is nonambulatory at baseline. Patient will be discharged to detention facility to complete a course of IV ertapenem for complicated UTI. He has indwelling Munguia.
--- NOTE | 2017-07-30 11:24 | Physician Discharge Referral ---
ExtendedCare Referral Info Transfer To: F Provider in Charge: Dr. Curry Provider in Charge after Transfer: PCP - Diagnosis (1) Metabolic encephalopathy Priority: Primary Status: Acute (2) Complicated UTI (urinary tract infection) Priority: Primary Status: Acute (3) Nonhealing surgical wound Priority: Primary Status: Chronic (4) Chronic diastolic CHF (congestive heart failure) Priority: Primary Status: Acute (5) DM (diabetes mellitus), type 2 Priority: Primary Status: Acute (6) History of atrial fibrillation Priority: Primary Status: Acute (7) Acute on chronic kidney failure Priority: Primary Status: Acute (8) DVT prophylaxis Priority: Primary Status: Acute - Transfer Medications Prescriptions: Ertapenem [INVanz] 1,000 mg IVPB DAILY #11 vial Home Medications: Allopurinol [Zyloprim] 200 mg PO BID 06/14/15 [History] Digoxin [Lanoxin] 0.125 mg PO DAILY 06/14/15 [History] Diltiazem CD (24hr) [Cardizem CD] 120 mg PO DAILY 06/14/15 [History] Fenofibrate 54 mg PO DAILY 06/14/15 [History] Fluticasone Propionate Nasal [Flonase] 1 spray NS DAILY 06/14/15 [History] Gabapentin [Neurontin] 600 mg PO HS 06/14/15 [History] Metoprolol [Lopressor] 50 mg PO BID 06/14/15 [History] Montelukast [Singulair] 10 mg PO HS 06/14/15 [History] Omeprazole [PriLOSEC] 20 mg PO HS 06/14/15 [History] Tamsulosin [Flomax] 0.4 mg PO DAILY 06/14/15 [History] glipiZIDE [Glipizide] 15 mg PO DAILY 06/14/15 [History] Gabapentin [Neurontin] 300 mg PO QA 03/21/16 [History] Erythromycin OPTH Oint 1 appl BOTH EYES HS 02/06/17 [History] Furosemide [Lasix] 80 mg PO BID 02/06/17 [History] Guaifenesin [Mucinex] 600 mg PO BID 02/06/17 [History] Multivitamin [Multivitamins] 1 each PO DAILY 02/06/17 [History] Primidone [Mysoline] 50 mg PO BID 02/06/17 [History] Insulin DETEMIR [Levemir] 40 unit SQ HS 07/27/17 [History] Insulin Regular, Human [Novolin R] 10 unit SQ TID 07/27/17 [History] Lisinopril [Zestril] 5 mg PO DAILY 07/27/17 [History] Oxybutynin [Ditropan] 5 mg PO QID 07/27/17 [History] Oxycodone HCl 15 mg PO Q4H PRN 07/27/17 [History] Polyethylene Glycol 3350 [MiraLAX Powder Bulk 17.9 Oz] 1 scoop PO DAILY PRN [History] Potassium Chloride [Klor-Con 10] 20 meq PO QID 07/27/17 [History] Ertapenem [INVanz] 1,000 mg IVPB DAILY #11 vial 07/30/17 [Rx] Warfarin perPT [Coumadin perPT] 1 each PO RPHPROT each 07/30/17 [Rx] Allergies/Adverse Reactions: 3 Allergy/AdvReac Type Severity Reaction Status Date / Time Sulfa (Sulfonamide Allergy Mild Rash Verified 06/14/15 12:50 Antibiotics) - Respiratory Orders Smoking Cessation: Smoking cessation has been advised. For more information, call the [place] Tobacco Quit Line at 8-093-SNPFNOW. - Ancillary Orders May use pressure relief devices daily prn, May go on BLAYNE w/family/respon republican w /meds at nurse discretion PRN, May consult with Dentist, Trouble Shooting Mechanic, Clothing Consultant PRN - Advance Directives Code Status: Full Code - Mobility Orders Other - Treatments Skin tear care topically daily PRN per policy, May check for fecal impaction rectally daily PRN, Fleet enema rectally every other day PRN cleansing purposes - Diet Orders Renal CERTIFICATION: I certify that the transfer of the above named patient to an Extended Care Facility is necessary for the continuing treatment of the diagnosis listed. The above information is true and accurate reflection of patient's current condition. Confidential - Redisclosure prohibited without a patient's written consent.
[2017-07-30] MEDS: Fluticasone Propionate Nasal 50 MCG/SPRAY BOTTLE NS SCH (13:38)
== END 2017-07-30 16:03 | DRG 698 ==
LOC: EMEROO 12:36 → 3BNU 12:36 → SUATTDRO 18:38 → 3ANU 07-30 06:26
PROVIDERS: ADMIT Registered Nurse; ATTEND Internal Medicine

== ENCOUNTER 2017-11-26 21:56 | Inpatient (IN) ==
[2017-11-26 22:59] LABS: Basophils % 0.3 %; Eosinophils # 0.4 K/mcL (0.0-0.6); Eosinophils % 2.8 %; Hematocrit 34.3 % (37.5-50.1); Hemoglobin 10.5 g/dL (12.9-16.9); Immature Granulocytes % 0.5 % (0-4); Lymphocytes # 1.2 K/mcL (0.6-4.6); Lymphocytes % 8.6 %; Mean Corpuscular HGB Conc 30.6 g/dL (31.6-35.5); Mean Corpuscular Hemoglobin 29.1 pg (28.0-33.3); Mean Platelet Volume 9.4 fL (9.4-12.4); Monocytes # 0.6 K/mcL (0.0-1.3); Monocytes % 4.4 %; Neutrophils # 11.1 K/mcL (1.6-8.9); Platelet Count 232 K/mcL (140-400); Red Blood Count 3.61 M/mcL (4.19-5.50); Red Cell Distribution Width 15.4 % (11.5-14.5); Segmented Neutrophils % 83.4 %
[2017-11-26 23:17] LABS: Albumin 3.3 g/dL (3.5-5.7); Albumin/Globulin Ratio 0.9 (1.1-2.2); Bilirubin,Total 0.3 mg/dL (0.3-1.0); Calcium 8.5 mg/dL (8.6-10.3); Globulin 3.7 g/dL (2.4-3.5); Potassium 4.2 mEq/L (3.5-5.1)
[2017-11-26] MEDS ORDERED: MetroNIDAZOLE 500 MG/100 ML 500 MG/100 ML BAG IVPB STA (23:34)
[2017-11-27 00:03] LABS: INR 2.6; Prothrombin Time 28.3 Seconds (9.4-12.1)
[2017-11-27] MEDS ORDERED: 0.9 % Sodium Chloride 500 ML IVC ONE (00:03)
--- NOTE | 2017-11-27 00:10 | Emergency Department Note ---
START Narrative - START START: I examined this patient and my medical decision-making was reviewed with the Resident Physician. I agree with the documented findings, disposition and treatment plan as described except to the extent set forth below. Findings consistent with colitis. We will start empiric antibiotics including Cipro and Flagyl. Patient is stable on leaving the hospital for further intervention.
--- NOTE | 2017-11-27 00:19 | Emergency Department Note ---
Disposition Clinical Impression: Colitis, Cystitis Disposition: Admitted As Inpatient Condition: Fair General Adult HPI - General Chief complaint: ED Weakness Stated complaint: "weakness, achy, diarrhea" Time Seen by Provider: 11/26/17 22:02 Source: EMS Limitations: altered mental status, physical limitation, age Nursing Notes Reviewed: Yes Vital Signs Reviewed: Yes - History of Present Illness HPI Narrative: Patient presents today from detention for evaluation of weakness and diarrhea. Patient family is at bedside and states that he has not been doing well for the last 2 months. Patient has been having increased sleeping as well as diarrheal episodes. Patient family is very unhappy with detention. Patient this time states that he feels rather well. Patient does have significant abdominal pain on tenderness. Patient is unable to give further insight into duration or etiology of abdominal pain. Patient has a Munguia catheter in place. Urine is cloudy and concern for cystitis. This catheter was placed by urology. There is no port for urine sample at this point. We will have deferred for further evaluation of urine. Patient will undergo further evaluation of possible infection with blood work and CT scan of the abdomen and pelvis. Pain Scale: 0 - Related Data Home Medications Medication Instructions Recorded Confirmed Allopurinol [Zyloprim] 200 mg PO BID 06/14/15 08/07/17 Digoxin [Lanoxin] 0.125 mg PO DAILY 06/14/15 08/07/17 Diltiazem CD (24hr) [Cardizem CD] 120 mg PO DAILY 06/14/15 08/07/17 Fenofibrate 54 mg PO DAILY 06/14/15 08/07/17 Fluticasone Propionate Nasal 1 spray NS DAILY 06/14/15 08/07/17 [Flonase] Gabapentin [Neurontin] 600 mg PO HS 06/14/15 08/07/17 Metoprolol [Lopressor] 50 mg PO BID 06/14/15 08/07/17 Montelukast [Singulair] 10 mg PO HS 06/14/15 08/07/17 Omeprazole [PriLOSEC] 20 mg PO HS 06/14/15 08/07/17 Tamsulosin [Flomax] 0.4 mg PO DAILY 06/14/15 08/07/17 glipiZIDE [Glipizide] 15 mg PO DAILY 06/14/15 08/07/17 Gabapentin [Neurontin] 300 mg PO BID 03/21/16 08/07/17 Erythromycin OPTH Oint 1 appl BOTH EYES HS 02/06/17 08/07/17 Furosemide [Lasix] 80 mg PO BID 02/06/17 08/07/17 Guaifenesin [Mucinex] 600 mg PO BID 02/06/17 08/07/17 Multivitamin [Multivitamins] 1 each PO DAILY 02/06/17 08/07/17 Primidone [Mysoline] 50 mg PO BID 02/06/17 08/07/17 Insulin DETEMIR [Levemir] 40 unit SQ HS 07/27/17 08/07/17 Insulin Regular, Human [Novolin R] 10 unit SQ TID 07/27/17 08/07/17 Lisinopril [Zestril] 5 mg PO DAILY 07/27/17 08/07/17 Oxybutynin [Ditropan] 5 mg PO QID 07/27/17 08/07/17 Oxycodone HCl 15 mg PO Q4H PRN 07/27/17 08/07/17 Polyethylene Glycol 3350 [MiraLAX 1 scoop PO DAILY PRN 07/27/17 08/07/17 Powder Bulk 17.9 Oz] Potassium Chloride [Klor-Con 10] 20 meq PO QID 07/27/17 08/07/17 Previous Rx's Medication Instructions Recorded Ertapenem [INVanz] 1,000 mg IVPB DAILY #11 vial 07/30/17 Warfarin perPT [Coumadin perPT] 1 each PO RPHPROT each 07/30/17 Allergies Allergy/AdvReac Type Severity Reaction Status Date / Time Sulfa (Sulfonamide Allergy Mild Rash Verified 10/12/17 09:07 Antibiotics) Constitutional: Reports: chills. Denies: fever Gastrointestinal: Reports: abdominal pain, nausea, diarrhea Integumentary: Denies: rash, abrasion, lesions Neurological: Reports: weakness Endocrine: Reports: fatigue Past Medical History - Past Medical History Medical history: Reports: asthma, atrial fibrillation, CHF, coronary artery disease, DVT, diabetes, hyperlipidemia, hypertension Surgical history: Reports: cholecystectomy, knee replacement, pacemaker/AICD Psychiatric history: Reports: no psych history - Social History Smoking Status: Never smoker Smokeless Tobacco Status: No Alcohol use: Reports: none Drug use: Reports: none Physical Exam General: Resting comfortably in bed. Head: Normocephalic Atraumatic Eyes: PERRL, EOMI ENT: Airway patent, no stridor Neck: supple, no meningismus Chest: Lungs clear to auscultation bilateral Cardiac: Regular rate and rhythm, no murmurs, rubs or gallops Abdomen: soft, nontender, nondistended; no guarding, rebound, or tenderness to percussion : Munguia in place. Musculoskeletal: Calves symmetric, nontender, no palpable cord Skin: No rash, normal skin tone Neuro: Alert and Oriented to person, place, and time; No focal deficit, - General Limitations: altered mental status, physical limitation, age General appearance: lethargic Course - Reevaluation(s) Reevaluation #1: Patient's urine not resulted because staff is concerned about being able to replace Munguia as it was placed by urology. Patient has evidence of cystitis on CAT scan. Evidence of colitis. Patient treated with Cipro and Flagyl. Will need further observation in the hospital. - Consultations Consultation #1: Discussed with hospitalist. Patient accepted for admission. Vital Signs Temperature 98.4 F 11/26/17 22:02 Pulse Rate 81 11/26/17 22:02 Respiratory Rate 16 11/26/17 22:02 Blood Pressure 122/87 11/26/17 22:02 O2 Sat by Pulse Oximetry 96 11/26/17 22:02 Temperature 98.4 F 11/26/17 22:02 Pulse Rate 81 11/26/17 22:02 Respiratory Rate 17 11/27/17 00:40 Blood Pressure 136/73 11/27/17 00:40 O2 Sat by Pulse Oximetry 96 11/26/17 22:02 Oxygen Delivery Oxygen Delivery Room Air Medical Decision Making - Lab Data Result diagrams: 11/26/17 22:51 11/26/17 22:51 Lab Results 11/26/17 11/26/17 11/26/17 Range/Units 22:51 22:51 22:51 WBC 13.3 H (4.3-11.1) K/mcL RBC 3.61 L (4.19-5.50) M/mcL Hgb 10.5 L (12.9-16.9) g/dL Hct 34.3 L (37.5-50.1) % MCV 95.0 (83.0-100.0) fL MCH 29.1 (28.0-33.3) pg MCHC 30.6 L (31.6-35.5) g/dL RDW 15.4 H (11.5-14.5) % Plt Count 232 (140-400) K/mcL MPV 9.4 (9.4-12.4) fL Immature Gran % 0.5 (0-4) % Seg Neutrophils % 83.4 % Lymphocytes % 8.6 % Monocytes % 4.4 % Eosinophils % 2.8 % Basophils % 0.3 % Neutrophils # 11.1 H (1.6-8.9) K/mcL Lymphocytes # 1.2 (0.6-4.6) K/mcL Monocytes # 0.6 (0.0-1.3) K/mcL Eosinophils # 0.4 (0.0-0.6) K/mcL Basophils # 0.0 (0.0-0.2) K/mcL PT (9.4-12.1) Seconds INR Sodium 140 (136-145) mEq/L Potassium 4.2 (3.5-5.1) mEq/L Chloride 111 H (98-107) mEq/L Carbon Dioxide 21 L (23-29) mEq/L BUN 42 H (8-23) mg/dL Creatinine 1.43 H (0.70-1.30) mg/dL Est GFR ( Amer) 59 L (> 60) Est GFR (Non-Af Amer) 49 L (> 60) BUN/Creatinine Ratio 29 H (6-26) Glucose 146 H (70-105) mg/dL Calculated Osmolality 303 H (280-300) Lactic Acid 1.2 (0.5-2.2) mmol/L Calcium 8.5 L (8.6-10.3) mg/dL Total Bilirubin 0.3 (0.3-1.0) mg/dL AST 24 (13-39) Units/L ALT 9 (7-52) Units/L Alkaline Phosphatase 39 (34-104) Units/L Troponin I (< 0.04) ng/mL Serum Total Protein 7.0 (6.4-8.9) g/dL Albumin 3.3 L (3.5-5.7) g/dL Globulin 3.7 H (2.4-3.5) g/dL Albumin/Globulin Ratio 0.9 L (1.1-2.2) Lipase 27 (11-82) Units/L 11/26/17 11/26/17 Range/Units 22:51 22:51 WBC (4.3-11.1) K/mcL RBC (4.19-5.50) M/mcL Hgb (12.9-16.9) g/dL Hct (37.5-50.1) % MCV (83.0-100.0) fL MCH (28.0-33.3) pg MCHC (31.6-35.5) g/dL RDW (11.5-14.5) % Plt Count (140-400) K/mcL MPV (9.4-12.4) fL Immature Gran % (0-4) % Seg Neutrophils % % Lymphocytes % % Monocytes % % Eosinophils % % Basophils % % Neutrophils # (1.6-8.9) K/mcL Lymphocytes # (0.6-4.6) K/mcL Monocytes # (0.0-1.3) K/mcL Eosinophils # (0.0-0.6) K/mcL Basophils # (0.0-0.2) K/mcL PT 28.3 H (9.4-12.1) Seconds INR 2.6 Sodium (136-145) mEq/L Potassium (3.5-5.1) mEq/L Chloride (98-107) mEq/L Carbon Dioxide (23-29) mEq/L BUN (8-23) mg/dL Creatinine (0.70-1.30) mg/dL Est GFR ( Amer) (> 60) Est GFR (Non-Af Amer) (> 60) BUN/Creatinine Ratio (6-26) Glucose (70-105) mg/dL Calculated Osmolality (280-300) Lactic Acid (0.5-2.2) mmol/L Calcium (8.6-10.3) mg/dL Total Bilirubin (0.3-1.0) mg/dL AST (13-39) Units/L ALT (7-52) Units/L Alkaline Phosphatase (34-104) Units/L Troponin I < 0.03 (< 0.04) ng/mL Serum Total Protein (6.4-8.9) g/dL Albumin (3.5-5.7) g/dL Globulin (2.4-3.5) g/dL Albumin/Globulin Ratio (1.1-2.2) Lipase (11-82) Units/L
[2017-11-27] MEDS ORDERED: Ondansetron 4 MG/2 ML VIAL IVP PRN (02:50)
[2017-11-27] MEDS ORDERED: Acetaminophen 325 MG TABLET PO PRN (02:50)
[2017-11-27] MEDS ORDERED: Naloxone 0.4 MG/ML INJ IVP PRN (02:50)
[2017-11-27] MEDS ORDERED: D5% in Water 1,000 ML IVC PRN (02:58)
[2017-11-27] MEDS ORDERED: *HR* Dextrose 50 % in Water (Syg) 50 ML SYRINGE IVP PRN (02:58)
[2017-11-27] MEDS ORDERED: Dextrose Gel 15 GM/37.5 ML TUBE PO PRN ×2 (02:58)
[2017-11-27] MEDS ORDERED: 0.9 % Sodium Chloride 1,000 ML IVC SCH (03:00)
--- NOTE | 2017-11-27 03:23 | Internal Med History&Physical ---
Date of Encounter: 11/27/17 Time of Encounter: 02:00 Assessment and Plan (1) Chronic diastolic CHF (congestive heart failure) Current visit: No Status: Acute No signs of exacerbation. Previous Echo shows EF 50-55% (2) DM (diabetes mellitus), type 2 Current visit: No Status: Acute Place pt on SSI. Closely monitor Glu level. Qualifiers: Diabetes mellitus complication status: with kidney complications Diabetes mellitus complication detail: with chronic kidney disease Diabetes mellitus intermodal customer service insulin use: with intermodal customer service use Chronic kidney disease stage: stage 3 (moderate) Qualified Code(s): E11.22 - Type 2 diabetes mellitus with diabetic chronic kidney disease; N18.3 - Chronic kidney disease, stage 3 ( moderate); Z79.4 - prison (current) use of insulin (3) DVT prophylaxis Current visit: No Status: Acute Pt is on coumadin, INR therapeutic. (4) History of atrial fibrillation Current visit: No Status: Acute HR is well controlled, pacing rhythm. On coumadin. (5) Metabolic encephalopathy Current visit: No Status: Acute Most likely due to Colitis or UTI. Treat underlying disease. (6) Acute on chronic kidney failure Current visit: No Status: Acute Cont IVF, f/u renal function, avoid nephrotoxic medications. Qualifiers: Acute renal failure type: unspecified Chronic kidney disease stage: stage 3 (moderate) Qualified Code(s): N17.9 - Acute kidney failure, unspecified; N18.3 - Chronic kidney disease, stage 3 (moderate) (7) Colitis Current visit: Yes Status: Acute Pt has diarrhea. CT abd shows colitis. Pt recently admitted for complicated UTI and was treated by Abx. - Need to r/o C Diff colitis. Check GI panel - Place pt on zosyn to cover both colitis and UTI (as pt has complicated UTI and his previous urine culture shows sensitive to zosyn) - IVF - Correct electrolytes abnormality. (8) Cystitis Current visit: Yes Status: Acute CT suggest cystitis. - Cover pt with zosyn per previous urine culture. - Check UA and urine culture. (9) Influenza A Current visit: Yes Status: Acute Flu test shows influenza A positive. Will start Tamiflu renal dose. Internal Medicine - H&P: HPI Chief complaint: Weakness and diarrhea Admitted From: Long-term Nursing Facility Plans for Post Hospital Care: Transfer Senior Care Facility History of present illness: Mr. Franco is a 72 year old male sent to ER from [facility] for weakness and diarrhea. Pt is generally disoriented and family is not at bedside. Hx obtained from transfer documentation and old chart. Pt is generally weak and has diarrhea for 2-3 days. Denies abd pain. No fever. Has mild nausea but no vomiting. In ER, CT abd shows colitis and cystitis. Pt has chronic Munguia placed by urology and hx of complicated UTI with recent abx use. He was also found Flu A positive. Difficult to discuss CODE Status with pt. RN called [facility] and was told pt is full code. Code status documentation will fax to nursing station. Past Med Surg Social Fam HX - Past Medical History Medical history: asthma, atrial fibrillation, CHF, coronary artery disease, DVT , diabetes, hyperlipidemia, hypertension Psychiatric history: no psych history - Past Surgical History Surgical History: cholecystectomy, knee replacement, pacemaker/AICD - Social History Smoking Status: Never smoker Smokeless Tobacco Status: No Alcohol use: none Drug use: none - Family History Father Living Status: Mother Living Status: Internal Medicine - H&P: Meds Allopurinol [Zyloprim] 200 mg PO BID 06/14/15 [History] Digoxin [Lanoxin] 0.125 mg PO DAILY 06/14/15 [History] Diltiazem CD (24hr) [Cardizem CD] 120 mg PO DAILY 06/14/15 [History] Fenofibrate 54 mg PO DAILY 06/14/15 [History] Fluticasone Propionate Nasal [Flonase] 1 spray NS DAILY 06/14/15 [History] Gabapentin [Neurontin] 600 mg PO HS 06/14/15 [History] Metoprolol [Lopressor] 50 mg PO BID 06/14/15 [History] Montelukast [Singulair] 10 mg PO HS 06/14/15 [History] Omeprazole [PriLOSEC] 20 mg PO HS 06/14/15 [History] Tamsulosin [Flomax] 0.4 mg PO DAILY 06/14/15 [History] glipiZIDE [Glipizide] 15 mg PO DAILY 06/14/15 [History] Gabapentin [Neurontin] 300 mg PO BID 03/21/16 [History] Erythromycin OPTH Oint 1 appl BOTH EYES HS 02/06/17 [History] Furosemide [Lasix] 80 mg PO BID 02/06/17 [History] Guaifenesin [Mucinex] 600 mg PO BID 02/06/17 [History] Multivitamin [Multivitamins] 1 each PO DAILY 02/06/17 [History] Primidone [Mysoline] 50 mg PO BID 02/06/17 [History] Insulin DETEMIR [Levemir] 40 unit SQ HS 07/27/17 [History] Insulin Regular, Human [Novolin R] 10 unit SQ TID 07/27/17 [History] Lisinopril [Zestril] 5 mg PO DAILY 07/27/17 [History] Oxybutynin [Ditropan] 5 mg PO QID 07/27/17 [History] Oxycodone HCl 15 mg PO Q4H PRN 07/27/17 [History] Polyethylene Glycol 3350 [MiraLAX Powder Bulk 17.9 Oz] 1 scoop PO DAILY PRN [History] Potassium Chloride [Klor-Con 10] 20 meq PO QID 07/27/17 [History] Ertapenem [INVanz] 1,000 mg IVPB DAILY #11 vial 07/30/17 [Rx] Warfarin perPT [Coumadin perPT] 1 each PO RPHPROT each 07/30/17 [Rx] 3 Allergy/AdvReac Type Severity Reaction Status Date / Time Sulfa (Sulfonamide Allergy Mild Rash Verified 10/12/17 09:07 Antibiotics) All Systems PM: A 10-system review of systems was performed and is negative for pertinent findings except as documented above in the HPI. - Constitutional Vitals: Temp Pulse Resp BP Pulse Ox 98.9 F 74 16 126/84 95 11/27/17 01:43 11/27/17 01:43 11/27/17 01:43 11/27/17 01:43 11/27/17 01:43 General appearance: Present: A&O X 1, no acute distress, answers questions appropriately - Head Head exam: Present: atraumatic, normocephalic - Eye Eye exam: Present: PERRL, conjuntiva pink, sclera anicteric Pupils: Present: PERRL - Neck Neck exam general surgery: Present: supple, trachea midline. Absent: lymphadenopathy - Respiratory Respiratory exam: Present: CTAB. Absent: accessory muscle use, rales, rhonchi, wheezes - Cardiovascular Cardiovascular exam: Present: RRR, +S1, +S2. Absent: diastolic murmur, gallop, rubs, systolic murmur - GI/Abdominal GI/Abdominal exam: Present: normal bowel sounds, soft, tenderness (Mild tenderness on lower abd), no peritoneal signs. Absent: distended - Extremities Exam Extremities exam: Present: warm, radial pulses palpable and symmetrical. Absent : calf tenderness, cyanotic, pedal edema - Neurological Exam Neurological exam: Present: CN II-XII intact, no focal deficits. Absent: pronater drift, facial droop, speech deficit - Skin Skin exam: Present: dry, intact Internal Med - H&P Results - Labs CBC & Chem 7: 11/26/17 22:51 11/26/17 22:51 - EKG Data -: EKG Interpreted by Myself (Paced rhythm)
[2017-11-27] MEDS: 0.9 % Sodium Chloride 1,000 ML IVC SCH ×2 (04:38→15:30)
[2017-11-27 05:07] LABS: Basophils # 0.1 K/mcL (0.0-0.2); Basophils % 0.4 %; Eosinophils # 0.3 K/mcL (0.0-0.6); Eosinophils % 2.5 %; Hematocrit 33.5 % (37.5-50.1); Hemoglobin 10.1 g/dL (12.9-16.9); Immature Granulocytes % 0.6 % (0-4); Lymphocytes # 1.3 K/mcL (0.6-4.6); Lymphocytes % 11.6 %; Mean Corpuscular HGB Conc 30.1 g/dL (31.6-35.5); Mean Corpuscular Hemoglobin 28.9 pg (28.0-33.3); Mean Corpuscular Volume 95.7 fL (83.0-100.0); Monocytes # 0.6 K/mcL (0.0-1.3); Monocytes % 4.8 %; Neutrophils # 9.2 K/mcL (1.6-8.9); Platelet Count 234 K/mcL (140-400); Red Cell Distribution Width 15.5 % (11.5-14.5); Segmented Neutrophils % 80.1 %
[2017-11-27 05:11] LABS: INR 2.7; Prothrombin Time 29.8 Seconds (9.4-12.1)
[2017-11-27 06:28] LABS: Bilirubin,Urine Negative (Negative); Blood,Urine Large (Negative); Clarity,Urine Turbid (Clear); Color,Urine Yellow (Yellow); Glucose,Urine (UA) Normal (Normal); Ketones,Urine Negative (Negative); Leukocyte Esterase,Urine Large (Negative); Nitrite,Urine Negative (Negative); Protein,Urine 30 mg/dL (Neg-Trace); Specific Gravity,Urine 1.013 (1.010-1.025); Urobilinogen,Urine Normal (Normal)
[2017-11-27 06:30] LABS: Bacteria,Urine Many per hpf (None-Few); Hyaline Casts,Urine None Seen per lpf (None-Few); RBC,Urine TNTC per hpf (0-3); Squamous Epithelial Cell,Urine Many per lpf (None-Few); WBC,Urine TNTC per hpf (0-3)
[2017-11-27 07:10] LABS: Calcium 8.3 mg/dL (8.6-10.3); Magnesium 1.6 mg/dL (1.6-2.6); Potassium 4.1 mEq/L (3.5-5.1)
[2017-11-27] MEDS ORDERED: Piperacillin/Tazobactam 3.375 GM/200 ML BAG IVPB SCH (08:00)
[2017-11-27] MEDS ORDERED: MetroNIDAZOLE 500 MG/100 ML 500 MG/100 ML BAG IVPB SCH (08:00)
--- NOTE | 2017-11-27 08:09 | Urology - Consult Note ---
Date of Encounter: 11/27/17 Time of Encounter: 08:07 - Assessment and Plan (1) Malfunction of indwelling urinary catheter Current Visit: Yes Status: Acute Assessment and plan: patient's catheter has already been repositioned. Clear urine in tubing. Patient can follow-up with urology as needed. Qualifiers: Encounter type: initial encounter Qualified Code(s): T83.011A - Breakdown ( mechanical) of indwelling urethral catheter, initial encounter Urology CN:PROSPER Consult date: 11/27/17 Reason for consult Urology: Difficult Munguia Requesting physician: Stoney Cortez History of present illness: Ottoniel is a 72-year-old male with a history of chronic indwelling urethral catheter recurrent [id number] urinary tract infections. Patient follows with Dr. Gerard for this. I was asked to evaluate the patient secondary to a CT scan showing the catheter within the patient's urethra. Patient's catheter had already been repositioned by my time of evaluation. Past Med Surg Social Fam HX - Past Medical History Medical history: asthma, atrial fibrillation, CHF, coronary artery disease, DVT , diabetes, hyperlipidemia, hypertension Psychiatric history: no psych history - Past Surgical History Surgical History: cholecystectomy, knee replacement, pacemaker/AICD - Social History Smoking Status: Never smoker Smokeless Tobacco Status: No Alcohol use: none Drug use: none - Family History Father Living Status: Mother Living Status: Medications and Allergies Allopurinol [Zyloprim] 200 mg PO BID 06/14/15 [History] Digoxin [Lanoxin] 0.125 mg PO DAILY 06/14/15 [History] Diltiazem CD (24hr) [Cardizem CD] 120 mg PO DAILY 06/14/15 [History] Fenofibrate 54 mg PO DAILY 06/14/15 [History] Fluticasone Propionate Nasal [Flonase] 1 spray NS DAILY 06/14/15 [History] Gabapentin [Neurontin] 600 mg PO HS 06/14/15 [History] Metoprolol [Lopressor] 50 mg PO BID 06/14/15 [History] Montelukast [Singulair] 10 mg PO HS 06/14/15 [History] Omeprazole [PriLOSEC] 20 mg PO HS 06/14/15 [History] Tamsulosin [Flomax] 0.4 mg PO DAILY 06/14/15 [History] glipiZIDE [Glipizide] 15 mg PO DAILY 06/14/15 [History] Gabapentin [Neurontin] 300 mg PO BID 03/21/16 [History] Erythromycin OPTH Oint 1 appl BOTH EYES HS 02/06/17 [History] Furosemide [Lasix] 80 mg PO BID 02/06/17 [History] Guaifenesin [Mucinex] 600 mg PO BID 02/06/17 [History] Multivitamin [Multivitamins] 1 each PO DAILY 02/06/17 [History] Primidone [Mysoline] 50 mg PO BID 02/06/17 [History] Insulin DETEMIR [Levemir] 40 unit SQ HS 07/27/17 [History] Insulin Regular, Human [Novolin R] 10 unit SQ TID 07/27/17 [History] Lisinopril [Zestril] 5 mg PO DAILY 07/27/17 [History] Oxybutynin [Ditropan] 5 mg PO QID 07/27/17 [History] Oxycodone HCl 15 mg PO Q4H PRN 07/27/17 [History] Polyethylene Glycol 3350 [MiraLAX Powder Bulk 17.9 Oz] 1 scoop PO DAILY PRN [History] Potassium Chloride [Klor-Con 10] 20 meq PO QID 07/27/17 [History] Ertapenem [INVanz] 1,000 mg IVPB DAILY #11 vial 07/30/17 [Rx] Warfarin perPT [Coumadin perPT] 1 each PO RPHPROT each 07/30/17 [Rx] 3 Allergy/AdvReac Type Severity Reaction Status Date / Time Sulfa (Sulfonamide Allergy Mild Rash Verified 10/12/17 09:07 Antibiotics) Review of Systems - Constitutional no chills, no fever(s) - Cardiovascular no chest pain - Respiratory no cough Exam Initial Vital Signs Temp Pulse Resp BP Pulse Ox 98.4 F 81 16 122/87 96 11/26/17 22:02 11/26/17 22:02 11/26/17 22:02 11/26/17 22:02 11/26/17 22:02 - General physical appearance Present: well developed - Cardiovascular Cardiovascular exam IM: RRR - Abdomen Abdomen: Present: soft - Genitourinary other (Catheter appears in good position. Clear urine in tubing) Urology Results - Labs 11/27/17 04:58 11/27/17 06:27 Abnormal lab results WBC 11.5 K/mcL (4.3-11.1) H 11/27/17 04:58 RBC 3.50 M/mcL (4.19-5.50) L 11/27/17 04:58 Hgb 10.1 g/dL (12.9-16.9) L 11/27/17 04:58 Hct 33.5 % (37.5-50.1) L 11/27/17 04:58 MCHC 30.1 g/dL (31.6-35.5) L 11/27/17 04:58 RDW 15.5 % (11.5-14.5) H 11/27/17 04:58 Neutrophils # 9.2 K/mcL (1.6-8.9) H 11/27/17 04:58 PT 29.8 Seconds (9.4-12.1) H 11/27/17 04:58 Chloride 113 mEq/L (98-107) H 11/27/17 06:27 Carbon Dioxide 22 mEq/L (23-29) L 11/27/17 06:27 BUN 46 mg/dL (8-23) H 11/27/17 06:27 Creatinine 1.70 mg/dL (0.70-1.30) H 11/27/17 06:27 Est GFR ( Amer) 48 (> 60) L 11/27/17 06:27 Est GFR (Non-Af Amer) 40 (> 60) L 11/27/17 06:27 BUN/Creatinine Ratio 27 (6-26) H 11/27/17 06:27 Glucose 150 mg/dL (70-105) H 11/27/17 06:27 Calculated Osmolality 309 (280-300) H 11/27/17 06:27 Calcium 8.3 mg/dL (8.6-10.3) L 11/27/17 06:27 Albumin 3.3 g/dL (3.5-5.7) L 11/26/17 22:51 Globulin 3.7 g/dL (2.4-3.5) H 11/26/17 22:51 Albumin/Globulin Ratio 0.9 (1.1-2.2) L 11/26/17 22:51 Urine Clarity Turbid (Clear) A 11/27/17 06:10 Urine Protein 30 mg/dL (Neg-Trace) H 11/27/17 06:10 Urine Blood Large (Negative) H 11/27/17 06:10 Ur Leukocyte Esterase Large (Negative) H 11/27/17 06:10 Urine Microscopic RBC TNTC per hpf (0-3) H 11/27/17 06:10 Urine Microscopic WBC TNTC per hpf (0-3) H 11/27/17 06:10 Ur Squamous Epith Cells Many per lpf (None-Few) H 11/27/17 06:10 Urine Bacteria Many per hpf (None-Few) H 11/27/17 06:10 Diabetes panel 11/27/17 Range/Units 06:27 Sodium 142 (136-145) mEq/L Potassium 4.1 (3.5-5.1) mEq/L Chloride 113 H (98-107) mEq/L Carbon Dioxide 22 L (23-29) mEq/L BUN 46 H (8-23) mg/dL Creatinine 1.70 H (0.70-1.30) mg/dL Glucose 150 H (70-105) mg/dL Calcium 8.3 L (8.6-10.3) mg/dL Calcium panel 11/27/17 Range/Units 06:27 Calcium 8.3 L (8.6-10.3) mg/dL Pituitary panel 11/27/17 Range/Units 06:27 Sodium 142 (136-145) mEq/L Potassium 4.1 (3.5-5.1) mEq/L Chloride 113 H (98-107) mEq/L Carbon Dioxide 22 L (23-29) mEq/L BUN 46 H (8-23) mg/dL Creatinine 1.70 H (0.70-1.30) mg/dL Glucose 150 H (70-105) mg/dL Calcium 8.3 L (8.6-10.3) mg/dL Adrenal panel 11/27/17 Range/Units 06:27 Sodium 142 (136-145) mEq/L Potassium 4.1 (3.5-5.1) mEq/L Chloride 113 H (98-107) mEq/L Carbon Dioxide 22 L (23-29) mEq/L BUN 46 H (8-23) mg/dL Creatinine 1.70 H (0.70-1.30) mg/dL Glucose 150 H (70-105) mg/dL Calcium 8.3 L (8.6-10.3) mg/dL All other labs normal. - Imaging CT scan - abdomen: image reviewed CT scan - pelvis: image reviewed Consult Discharge Plan - Plan Referrals: Berto Bustamante MD [Primary Care Provider] -
[2017-11-27 09:30] LABS: C.difficile Toxin A/B by PCR Not detected (Not detect); Campylobacter by PCR Not detected (Not detect); Cryptosporidium by PCR Not detected (Not detect); Cyclospora cayetanensis PCR Not detected (Not detect); E. coli O157 by PCR Not detected (Not detect); Entamoeba histolytica PCR Not detected (Not detect); Enteroaggregative E.coli(EAEC) Not detected (Not detect); Enteropathogenic E.coli(EPEC) Not detected (Not detect); Enterotoxigenic E.coli (ETEC) Not detected (Not detect); Giardia lamblia PCR Not detected (Not detect); Plesiomonas shigelloides PCR Not detected (Not detect); Salmonella PCR Not detected (Not detect); Shig/EnteroinvasiveE coli EIEC Not detected (Not detect); Shigalike tox-prod E coli STEC Not detected (Not detect); Vibrio PCR Not detected (Not detect); Vibrio cholerae PCR Not detected (Not detect); Yersinia enterocolitica PCR Not detected (Not detect)
[2017-11-27 09:31] LABS: Adenovirus F 40/41 PCR Not detected (Not detect); Astrovirus PCR Not detected (Not detect); Norovirus GI/GII PCR ***DETECTED*** (Not detect); Rotavirus A PCR Not detected (Not detect); Sapovirus PCR Not detected (Not detect)
[2017-11-27] MEDS: Insulin LISPRO 300 UNITS/3 ML VIAL SQ SCH ×4 (10:25→22:48)
[2017-11-27] MEDS: Lactobacillus 1 EACH CAP.SPRINK PO SCH (10:37)
[2017-11-27] MEDS: Oseltamivir Phosphate 30 MG CAPSULE PO SCH ×2 (10:37→21:59)
[2017-11-27] MEDS: *HR* OxyCODONE Immed Rel 5 MG TABLET PO PRN ×2 (15:29→21:59)
[2017-11-27] MEDS ORDERED: *HR* Warfarin 5 MG TABLET PO ONE (18:00)
[2017-11-27] MEDS ORDERED: Warfarin perPT PO PRN (18:00)
[2017-11-27] MEDS: Piperacillin/Tazobactam 3.375 GM/200 ML BAG IVPB SCH (18:01)
[2017-11-28] MEDS: Piperacillin/Tazobactam 3.375 GM/200 ML BAG IVPB SCH ×3 (00:19→19:24)
[2017-11-28 04:37] LABS: Basophils % 0.4 %; Eosinophils # 0.3 K/mcL (0.0-0.6); Eosinophils % 3.1 %; Hematocrit 33.7 % (37.5-50.1); Hemoglobin 10.3 g/dL (12.9-16.9); Immature Granulocytes % 0.9 % (0-4); Lymphocytes # 1.6 K/mcL (0.6-4.6); Lymphocytes % 15.2 %; Mean Corpuscular HGB Conc 30.6 g/dL (31.6-35.5); Mean Corpuscular Volume 94.9 fL (83.0-100.0); Mean Platelet Volume 9.8 fL (9.4-12.4); Monocytes # 0.8 K/mcL (0.0-1.3); Monocytes % 7.3 %; Neutrophils # 7.6 K/mcL (1.6-8.9); Platelet Count 208 K/mcL (140-400); Red Blood Count 3.55 M/mcL (4.19-5.50); Red Cell Distribution Width 15.5 % (11.5-14.5); Segmented Neutrophils % 73.1 %
[2017-11-28 04:44] LABS: INR 4.1
[2017-11-28 04:49] LABS: Prothrombin Time 45.5 Seconds (9.4-12.1)
[2017-11-28 05:04] LABS: Calcium 8.4 mg/dL (8.6-10.3); Potassium 3.5 mEq/L (3.5-5.1)
--- NOTE | 2017-11-28 08:14 | Internal Med Progress Note ---
Date of Encounter: 11/28/17 Time of Encounter: 08:11 - Assessment and plan (1) Colitis Current Visit: Yes Status: Acute Assessment and plan: Likely secondary to virus. We will keep Zosyn going for now but would like to stop by tomorrow if cultures remain negative. Continue to encourage hydration. We will start gentle hydration with IV fluids given his low blood pressure and elevated kidney function compared to baseline. (2) Influenza A Current Visit: Yes Status: Acute Assessment and plan: Continue Tamiflu due to 5 days. (3) Renal failure (ARF), acute on chronic Current Visit: Yes Status: Acute Assessment and plan: Start careful hydration with normal saline at 77 mL an hour. His creatinine was 1.28 back on November 13 Qualifiers: Acute renal failure type: unspecified Chronic kidney disease stage: stage 3 (moderate) Qualified Code(s): N17.9 - Acute kidney failure, unspecified; N18.3 - Chronic kidney disease, stage 3 (moderate); N18.3 - Chronic kidney disease, stage 3 (moderate) (4) Metabolic encephalopathy Current Visit: No Status: Acute Assessment and plan: Resolving. Multifactorial secondary to above. We will continue to monitor. (5) Chronic diastolic CHF (congestive heart failure) Current Visit: No Status: Acute Assessment and plan: Patient has not an exacerbation. He is on room air. We will resume the patient 's digoxin and beta ken and Lasix home dose (6) DM (diabetes mellitus), type 2 Current Visit: No Status: Acute Assessment and plan: Continue since Thursday schedule. Continue Accu-Cheks. Qualifiers: Diabetes mellitus complication status: with kidney complications Diabetes mellitus complication detail: with chronic kidney disease Diabetes mellitus mcfp insulin use: with machinist first class use Chronic kidney disease stage: stage 3 (moderate) Qualified Code(s): E11.22 - Type 2 diabetes mellitus with diabetic chronic kidney disease; N18.3 - Chronic kidney disease, stage 3 ( moderate); Z79.4 - penitentiary (current) use of insulin (7) History of atrial fibrillation Current Visit: No Status: Acute Assessment and plan: Continue home medication attack or addition of Coumadin. (8) Malfunction of indwelling urinary catheter Current Visit: Yes Status: Acute Assessment and plan: Resolved. And new meek has been placed. Qualifiers: Encounter type: initial encounter Qualified Code(s): T83.011A - Breakdown ( mechanical) of indwelling urethral catheter, initial encounter (9) DVT prophylaxis Current Visit: No Status: Acute Assessment and plan: Coumadin - Subjective Interval history: No acute events. The patient was admitted with diarrhea. Positive for normal fires. C. difficile is negative. Diarrhea as improving. He also tested positive for the flu. Has been vented on Tamiflu. Has been afebrile. - Constitutional Vitals: Temp Pulse Resp BP Pulse Ox 98.0 F 71 19 107/51 98 11/28/17 07:23 11/28/17 07:23 11/28/17 07:23 11/28/17 07:23 11/28/17 07:23 General appearance: Present: A&O X 1, no acute distress, answers questions appropriately Exam: GEN: NAD CVS: RRR. S1, S2, No m/r/g RESP: CTAB ABD: Soft, NT, ND, +BS EXT: No edema. 2+ DP. No rashes NEURO: Nonfocal Internal Medicine: Result - Labs CBC & Chem 7: 11/28/17 04:18 11/28/17 04:18 Labs: Short CBC 11/28/17 Range/Units 04:18 WBC 10.4 (4.3-11.1) K/mcL Hgb 10.3 L (12.9-16.9) g/dL Hct 33.7 L (37.5-50.1) % Plt Count 208 (140-400) K/mcL Neutrophils # 7.6 (1.6-8.9) K/mcL BMP 11/28/17 04:18 Sodium 142 Potassium 3.5 Chloride 116 H Carbon Dioxide 18 L BUN 47 H Creatinine 1.57 H Glucose 154 H Calcium 8.4 L - ABG Interpretation ABG results: PT/INR, D-dimer PT 45.5 Seconds (9.4-12.1) H* D 11/28/17 04:18 Consult Discharge Plan - Plan Referrals: Berto Bustamante MD [Primary Care Provider] -
[2017-11-28] MEDS: Diltiazem CD (24hr) 120 MG CAPSULE PO SCH (08:57)
[2017-11-28] MEDS: Oseltamivir Phosphate 30 MG CAPSULE PO SCH ×2 (08:57→22:18)
[2017-11-28] MEDS: Primidone 50 MG TABLET PO SCH ×2 (08:58→22:17)
[2017-11-28] MEDS: Lactobacillus 1 EACH CAP.SPRINK PO SCH (08:58)
[2017-11-28] MEDS: Gabapentin 300 MG CAPSULE PO SCH ×3 (08:58→22:18)
[2017-11-28] MEDS: Insulin LISPRO 300 UNITS/3 ML VIAL SQ SCH ×4 (08:58→22:16)
[2017-11-28] MEDS: *HR* OxyCODONE Immed Rel 5 MG TABLET PO PRN ×2 (08:58→18:49)
[2017-11-28] MEDS: 0.9 % Sodium Chloride 1,000 ML IVC SCH (08:59)
[2017-11-28] MEDS: *HR* Digoxin 0.125 MG TABLET PO SCH (09:00)
[2017-11-28] MEDS: Fenofibrate 54 MG TABLET PO SCH (09:03)
--- NOTE | 2017-11-28 10:12 | Electrocardiograph Report ---
[address] [place] [address] Test Date: 2017-11-26 Pat Name: Ottoniel Franco Department: 102 Room: 2A22 Gender: M Reporting Consultant: Ekp : 1945 Requested By: Guanako Cunningham Order Number: [id number] Reading MD: Khadar Lau DO Measurements Intervals [place] Rate: 82 P: CT: 0 QRS: -70 QRSD: 133 T: 116 QT: 357 QTc: 395 Interpretive Statements DEMAND VENTRICULAR PACING UNDERLYING RHYTHM ATRIAL FIBRILLATION PREVIOUS ANTERIOR AND INFERIOR INFARCTIONS, AGE UNDETERMINED Electronically Signed On 11-28-2017 10:11:05 EST by Khadar Lau DO
[2017-11-29] MEDS: 0.9 % Sodium Chloride 1,000 ML IVC SCH ×3 (00:47→16:44)
[2017-11-29] MEDS: Piperacillin/Tazobactam 3.375 GM/200 ML BAG IVPB SCH (02:22)
[2017-11-29 06:57] LABS: Basophils # 0.1 K/mcL (0.0-0.2); Basophils % 0.5 %; Eosinophils # 0.5 K/mcL (0.0-0.6); Hematocrit 32.8 % (37.5-50.1); Lymphocytes # 1.6 K/mcL (0.6-4.6); Lymphocytes % 14.8 %; Mean Corpuscular HGB Conc 30.5 g/dL (31.6-35.5); Mean Corpuscular Hemoglobin 28.7 pg (28.0-33.3); Mean Corpuscular Volume 94.3 fL (83.0-100.0); Mean Platelet Volume 9.7 fL (9.4-12.4); Monocytes # 0.7 K/mcL (0.0-1.3); Monocytes % 6.9 %; Neutrophils # 7.7 K/mcL (1.6-8.9); Platelet Count 223 K/mcL (140-400); Red Blood Count 3.48 M/mcL (4.19-5.50); Red Cell Distribution Width 15.7 % (11.5-14.5); Segmented Neutrophils % 71.8 %
[2017-11-29 07:03] LABS: BUN/Creatinine Ratio 29 (6-26); Blood Urea Nitrogen 41 mg/dL (8-23); Calcium 8.1 mg/dL (8.6-10.3); Carbon Dioxide 17 mEq/L (23-29); Chloride 119 mEq/L (98-107); Glucose 168 mg/dL (70-105); Osmolality,Calculated 312 (280-300); Potassium 3.5 mEq/L (3.5-5.1); Sodium 144 mEq/L (136-145); eGFR For African Americans > 60 (> 60); eGFR For Non-African Americans 50 (> 60)
[2017-11-29 07:21] LABS: INR 5.9
[2017-11-29 07:22] LABS: Prothrombin Time 66.3 Seconds (9.4-12.1)
--- NOTE | 2017-11-29 08:19 | Internal Med Progress Note ---
Date of Encounter: 11/29/17 Time of Encounter: 08:17 - Assessment and plan (1) Colitis Current Visit: Yes Status: Acute Assessment and plan: Likely secondary to Noravirus. Stop Zosyn. Continue gentle hydration Continue to encourage hydration. (2) Influenza A Current Visit: Yes Status: Acute Assessment and plan: Continue Tamiflu for 5 days. (3) Renal failure (ARF), acute on chronic Current Visit: Yes Status: Acute Assessment and plan: Continue with IV fluids. Running normal saline at 75 mL an hour. Creatinine is improving today compared to yesterday. His creatinine was 1.28 back on November 13 Qualifiers: Acute renal failure type: unspecified Chronic kidney disease stage: stage 3 (moderate) Qualified Code(s): N17.9 - Acute kidney failure, unspecified; N18.3 - Chronic kidney disease, stage 3 (moderate); N18.3 - Chronic kidney disease, stage 3 (moderate) (4) Metabolic encephalopathy Current Visit: No Status: Acute Assessment and plan: Resolving. Multifactorial secondary to above. We will continue to monitor. (5) Chronic diastolic CHF (congestive heart failure) Current Visit: No Status: Acute Assessment and plan: Patient has not an exacerbation. He is on room air. We will resume the patient 's digoxin and beta ken and Lasix home dose (6) DM (diabetes mellitus), type 2 Current Visit: No Status: Acute Assessment and plan: Continue insulin sliding scale. Continue Accu-Cheks. 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 Rate is controlled. His INR is supratherapeutic at 5.9. It has been steadily going up. This possibly could be secondary to Tamiflu in the influenza virus. For now we will continue to monitor. Check INR in the morning. No need for reversal. No signs of bleeding. (8) Malfunction of indwelling urinary catheter Current Visit: Yes Status: Acute Assessment and plan: Resolved. And new meek has been placed. Qualifiers: Encounter type: initial encounter Qualified Code(s): T83.011A - Breakdown ( mechanical) of indwelling urethral catheter, initial encounter (9) DVT prophylaxis Current Visit: No Status: Acute Assessment and plan: Coumadin - Subjective Interval history: No acute events. The patient was admitted with diarrhea. Positive for noravirus. C. difficile is negative. diarrhea is improving. He also tested positive for the flu. Has Been started on Tamiflu. Has been afebrile. - Constitutional Vitals: Temp Pulse Resp BP Pulse Ox 98.5 F 72 18 160/63 97 11/29/17 07:01 11/29/17 07:01 11/29/17 07:01 11/29/17 07:01 11/29/17 07:01 General appearance: Present: A&O X 1, no acute distress, answers questions appropriately Exam: GEN: NAD CVS: RRR. S1, S2, No m/r/g RESP: CTAB ABD: Soft, NT, ND, +BS EXT: No edema. 2+ DP. No rashes NEURO: Nonfocal Internal Medicine: Result - Labs CBC & Chem 7: 11/29/17 06:14 11/29/17 06:14 Labs: Short CBC 11/29/17 Range/Units 06:14 WBC 10.7 (4.3-11.1) K/mcL Hgb 10.0 L (12.9-16.9) g/dL Hct 32.8 L (37.5-50.1) % Plt Count 223 (140-400) K/mcL Neutrophils # 7.7 (1.6-8.9) K/mcL BMP 11/29/17 06:14 Sodium 144 Potassium 3.5 Chloride 119 H Carbon Dioxide 17 L BUN 41 H Creatinine 1.39 H Glucose 168 H Calcium 8.1 L - ABG Interpretation ABG results: PT/INR, D-dimer PT 66.3 Seconds (9.4-12.1) H* 11/29/17 06:14 Consult Discharge Plan - Plan Referrals: Berto Busatmante MD [Primary Care Provider] -
[2017-11-29] MEDS: Lactobacillus 1 EACH CAP.SPRINK PO SCH (09:40)
[2017-11-29] MEDS: *HR* Digoxin 0.125 MG TABLET PO SCH (09:41)
[2017-11-29] MEDS: Diltiazem CD (24hr) 120 MG CAPSULE PO SCH (09:42)
[2017-11-29] MEDS: Fenofibrate 54 MG TABLET PO SCH (09:42)
[2017-11-29] MEDS: *HR* OxyCODONE Immed Rel 5 MG TABLET PO PRN (09:42)
[2017-11-29] MEDS: Oseltamivir Phosphate 30 MG CAPSULE PO SCH ×2 (09:42→21:57)
[2017-11-29] MEDS: Primidone 50 MG TABLET PO SCH ×2 (09:43→21:57)
[2017-11-29] MEDS: Insulin LISPRO 300 UNITS/3 ML VIAL SQ SCH ×4 (09:45→22:06)
[2017-11-29] MEDS: Gabapentin 300 MG CAPSULE PO SCH ×3 (10:48→21:58)
[2017-11-29] MEDS: Nystatin POWDER 30 GM BOTTLE TP SCH (21:59)
[2017-11-30] MEDS: 0.9 % Sodium Chloride 1,000 ML IVC SCH ×2 (04:06→06:53)
[2017-11-30] MEDS: *HR* OxyCODONE Immed Rel 5 MG TABLET PO PRN ×4 (04:07→22:53)
[2017-11-30 06:26] LABS: Basophils % 0.3 %; Eosinophils # 0.5 K/mcL (0.0-0.6); Eosinophils % 4.4 %; Hematocrit 31.3 % (37.5-50.1); Hemoglobin 9.8 g/dL (12.9-16.9); Immature Granulocytes % 0.6 % (0-4); Lymphocytes # 1.7 K/mcL (0.6-4.6); Lymphocytes % 16.3 %; Mean Corpuscular HGB Conc 31.3 g/dL (31.6-35.5); Mean Corpuscular Hemoglobin 29.4 pg (28.0-33.3); Mean Platelet Volume 9.5 fL (9.4-12.4); Monocytes # 0.7 K/mcL (0.0-1.3); Monocytes % 6.5 %; Neutrophils # 7.7 K/mcL (1.6-8.9); Platelet Count 200 K/mcL (140-400); Red Blood Count 3.33 M/mcL (4.19-5.50); Red Cell Distribution Width 15.6 % (11.5-14.5); Segmented Neutrophils % 71.9 %
[2017-11-30 06:36] LABS: INR 5.3; Prothrombin Time 59.6 Seconds (9.4-12.1)
[2017-11-30 06:46] LABS: BUN/Creatinine Ratio 30 (6-26); Blood Urea Nitrogen 39 mg/dL (8-23); Calcium 8.4 mg/dL (8.6-10.3); Carbon Dioxide 19 mEq/L (23-29); Chloride 116 mEq/L (98-107); Glucose 169 mg/dL (70-105); Osmolality,Calculated 309 (280-300); Potassium 3.3 mEq/L (3.5-5.1); Sodium 143 mEq/L (136-145); eGFR For African Americans > 60 (> 60); eGFR For Non-African Americans 55 (> 60)
[2017-11-30] MEDS: Fenofibrate 54 MG TABLET PO SCH (07:59)
[2017-11-30] MEDS: Diltiazem CD (24hr) 120 MG CAPSULE PO SCH (07:59)
[2017-11-30] MEDS: Gabapentin 300 MG CAPSULE PO SCH ×3 (07:59→22:53)
[2017-11-30] MEDS: Primidone 50 MG TABLET PO SCH ×2 (07:59→22:52)
[2017-11-30] MEDS: Lactobacillus 1 EACH CAP.SPRINK PO SCH (07:59)
[2017-11-30] MEDS: *HR* Digoxin 0.125 MG TABLET PO SCH (08:01)
[2017-11-30] MEDS: Oseltamivir Phosphate 30 MG CAPSULE PO SCH ×2 (08:04→22:53)
[2017-11-30] MEDS: Nystatin POWDER 30 GM BOTTLE TP SCH ×2 (08:04→22:54)
[2017-11-30] MEDS: Insulin LISPRO 300 UNITS/3 ML VIAL SQ SCH ×4 (08:04→22:54)
--- NOTE | 2017-11-30 09:14 | Internal Med Progress Note ---
Date of Encounter: 11/30/17 Time of Encounter: 09:11 - Assessment and plan (1) Colitis Current Visit: Yes Status: Acute Assessment and plan: Likely secondary to Noravirus. Stopped Zosyn. Continue gentle hydration Continue to encourage hydration. (2) Influenza A Current Visit: Yes Status: Acute Assessment and plan: Continue Tamiflu for 5 days. Today is day 4 (3) Renal failure (ARF), acute on chronic Current Visit: Yes Status: Acute Assessment and plan: Continue with IV fluids. Improvement. Creatinine is at 1.28 today. This seems to be more consistent with his baseline. Given his history of heart failure, I will stop his IV fluids and encourage by mouth intake. Qualifiers: Acute renal failure type: unspecified Chronic kidney disease stage: stage 3 (moderate) Qualified Code(s): N17.9 - Acute kidney failure, unspecified; N18.3 - Chronic kidney disease, stage 3 (moderate); N18.3 - Chronic kidney disease, stage 3 (moderate) (4) Metabolic encephalopathy Current Visit: No Status: Acute Assessment and plan: Resolving. Multifactorial secondary to above. We will continue to monitor. (5) Chronic diastolic CHF (congestive heart failure) Current Visit: No Status: Acute Assessment and plan: Patient has not an exacerbation. He is on room air. We will resume the patient 's digoxin and beta ken and Lasix home dose (6) DM (diabetes mellitus), type 2 Current Visit: No Status: Acute Assessment and plan: Continue insulin sliding scale. Continue Accu-Cheks. 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 Rate is controlled. His INR remains supratherapeutic. It is 5.3 today. Check digoxin level. It has been steadily going up until today. This possibly could be secondary to Tamiflu in the influenza virus. For now we will continue to monitor. Check INR in the morning. No need for reversal. No signs of bleeding. (8) Malfunction of indwelling urinary catheter Current Visit: Yes Status: Acute Assessment and plan: Resolved. And new meek has been placed. Qualifiers: Encounter type: initial encounter Qualified Code(s): T83.011A - Breakdown ( mechanical) of indwelling urethral catheter, initial encounter (9) DVT prophylaxis Current Visit: No Status: Acute Assessment and plan: Coumadin (10) Goals of care, counseling/discussion Current Visit: Yes Status: Acute Assessment and plan: Can possibly discharge back to assisted facility tomorrow - Subjective Interval history: No acute events. Patient was seen and examined. The patient was admitted with diarrhea. Positive for noravirus. C. difficile is negative. diarrhea is improving. He also tested positive for the flu. Has Been started on Tamiflu. Has been afebrile. - Constitutional Vitals: Temp Pulse Resp BP Pulse Ox 98.2 F 71 16 135/73 97 11/30/17 06:59 11/30/17 06:59 11/30/17 06:59 11/30/17 06:59 11/30/17 06:59 General appearance: Present: A&O X 1, no acute distress, answers questions appropriately Exam: GEN: NAD CVS: RRR. S1, S2, No m/r/g RESP: CTAB ABD: Soft, NT, ND, +BS EXT: No edema. 2+ DP. No rashes NEURO: Nonfocal Internal Medicine: Result - Labs CBC & Chem 7: 11/30/17 05:56 11/30/17 05:56 Labs: Short CBC 11/30/17 Range/Units 05:56 WBC 10.7 (4.3-11.1) K/mcL Hgb 9.8 L (12.9-16.9) g/dL Hct 31.3 L (37.5-50.1) % Plt Count 200 (140-400) K/mcL Neutrophils # 7.7 (1.6-8.9) K/mcL BMP 11/30/17 05:56 Sodium 143 Potassium 3.3 L Chloride 116 H Carbon Dioxide 19 L BUN 39 H Creatinine 1.28 Glucose 169 H Calcium 8.4 L - ABG Interpretation ABG results: PT/INR, D-dimer PT 59.6 Seconds (9.4-12.1) H* 11/30/17 05:56 Consult Discharge Plan - Plan Referrals: Berto Bustamante MD [Primary Care Provider] - (patient will follow up with ECF PCP)
[2017-12-01 05:59] LABS: Basophils % 0.3 %; Eosinophils # 0.4 K/mcL (0.0-0.6); Eosinophils % 4.2 %; Hematocrit 32.1 % (37.5-50.1); Hemoglobin 9.8 g/dL (12.9-16.9); Immature Granulocytes % 0.5 % (0-4); Lymphocytes # 1.9 K/mcL (0.6-4.6); Lymphocytes % 19.2 %; Mean Corpuscular HGB Conc 30.5 g/dL (31.6-35.5); Mean Corpuscular Hemoglobin 28.7 pg (28.0-33.3); Mean Corpuscular Volume 93.9 fL (83.0-100.0); Mean Platelet Volume 9.6 fL (9.4-12.4); Monocytes # 0.6 K/mcL (0.0-1.3); Monocytes % 6.3 %; Neutrophils # 6.9 K/mcL (1.6-8.9); Platelet Count 215 K/mcL (140-400); Red Blood Count 3.42 M/mcL (4.19-5.50); Red Cell Distribution Width 15.2 % (11.5-14.5); Segmented Neutrophils % 69.5 %
[2017-12-01 06:01] LABS: INR 3.8; Prothrombin Time 42.1 Seconds (9.4-12.1)
[2017-12-01 06:18] LABS: BUN/Creatinine Ratio 30 (6-26); Blood Urea Nitrogen 37 mg/dL (8-23); Calcium 8.4 mg/dL (8.6-10.3); Carbon Dioxide 22 mEq/L (23-29); Chloride 113 mEq/L (98-107); Glucose 144 mg/dL (70-105); Osmolality,Calculated 303 (280-300); Potassium 3.4 mEq/L (3.5-5.1); Sodium 141 mEq/L (136-145); eGFR For African Americans > 60 (> 60); eGFR For Non-African Americans 57 (> 60)
[2017-12-01 06:43] VITALS: BP 124/80
[2017-12-01] MEDS: Insulin LISPRO 300 UNITS/3 ML VIAL SQ SCH (08:06)
[2017-12-01] MEDS: Oseltamivir Phosphate 30 MG CAPSULE PO SCH (08:06)
[2017-12-01] MEDS: Diltiazem CD (24hr) 120 MG CAPSULE PO SCH (08:06)
[2017-12-01] MEDS: *HR* Digoxin 0.125 MG TABLET PO SCH (08:06)
[2017-12-01] MEDS: Gabapentin 300 MG CAPSULE PO SCH (08:06)
[2017-12-01] MEDS: Fenofibrate 54 MG TABLET PO SCH (08:06)
[2017-12-01] MEDS: Lactobacillus 1 EACH CAP.SPRINK PO SCH (08:06)
[2017-12-01] MEDS: Primidone 50 MG TABLET PO SCH (08:06)
[2017-12-01] MEDS: *HR* OxyCODONE Immed Rel 5 MG TABLET PO PRN (08:15)
[2017-12-01] MEDS: Nystatin POWDER 30 GM BOTTLE TP SCH (08:21)
--- NOTE | 2017-12-01 10:38 | Discharge Summary ---
Date of Encounter: 12/01/17 Time of Encounter: 10:38 - Discharge Diagnosis (1) Colitis Priority: Primary Status: Acute (2) Influenza A Priority: Primary Status: Acute (3) Renal failure (ARF), acute on chronic Priority: Primary Status: Acute Qualifiers: Acute renal failure type: unspecified Chronic kidney disease stage: stage 3 (moderate) Qualified Code(s): N17.9 - Acute kidney failure, unspecified; N18.3 - Chronic kidney disease, stage 3 (moderate); N18.3 - Chronic kidney disease, stage 3 (moderate) (4) Metabolic encephalopathy Priority: Primary Status: Acute (5) Chronic diastolic CHF (congestive heart failure) Priority: Secondary Status: Acute (6) DM (diabetes mellitus), type 2 Priority: Secondary Status: Acute Qualifiers: Diabetes mellitus complication status: with kidney complications Diabetes mellitus complication detail: with chronic kidney disease Diabetes mellitus assisted insulin use: with tank terminal gauger use Chronic kidney disease stage: stage 3 (moderate) Qualified Code(s): E11.22 - Type 2 diabetes mellitus with diabetic chronic kidney disease; N18.3 - Chronic kidney disease, stage 3 ( moderate); N18.3 - Chronic kidney disease, stage 3 (moderate); Z79.4 - snf (current) use of insulin; Z79.4 - snf (current) use of insulin; 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.4 - 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 of insulin; Z79.4 - 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 of insulin (7) History of atrial fibrillation Priority: Secondary Status: Acute (8) Malfunction of indwelling urinary catheter Priority: Primary Status: Acute Qualifiers: Encounter type: initial encounter Qualified Code(s): T83.011A - Breakdown ( mechanical) of indwelling urethral catheter, initial encounter (9) Morbid obesity with BMI of 40.0-44.9, adult Priority: Secondary Status: Acute - Discharge Medications Home Medications: Allopurinol [Zyloprim] 200 mg PO BID 06/14/15 [History] Digoxin [Lanoxin] 0.125 mg PO DAILY 06/14/15 [History] Diltiazem CD (24hr) [Cardizem CD] 120 mg PO DAILY 06/14/15 [History] Fenofibrate 54 mg PO DAILY 06/14/15 [History] Fluticasone Propionate Nasal [Flonase] 1 spray NS DAILY 06/14/15 [History] Gabapentin [Neurontin] 600 mg PO HS 06/14/15 [History] Metoprolol [Lopressor] 50 mg PO BID 06/14/15 [History] Montelukast [Singulair] 10 mg PO HS 06/14/15 [History] Omeprazole [PriLOSEC] 20 mg PO HS 06/14/15 [History] Tamsulosin [Flomax] 0.4 mg PO DAILY 06/14/15 [History] glipiZIDE [Glipizide] 15 mg PO DAILY 06/14/15 [History] Gabapentin [Neurontin] 300 mg PO BID 03/21/16 [History] Erythromycin OPTH Oint 1 appl BOTH EYES HS 02/06/17 [History] Furosemide [Lasix] 80 mg PO BID 02/06/17 [History] Guaifenesin [Mucinex] 600 mg PO BID 02/06/17 [History] Multivitamin [Multivitamins] 1 each PO DAILY 02/06/17 [History] Primidone [Mysoline] 150 mg PO BID 02/06/17 [History] Insulin DETEMIR [Levemir] 40 unit SQ HS 07/27/17 [History] Insulin Regular, Human [Novolin R] 10 unit SQ TID 07/27/17 [History] Lisinopril [Zestril] 5 mg PO DAILY 07/27/17 [History] Oxybutynin [Ditropan] 5 mg PO QID 07/27/17 [History] Polyethylene Glycol 3350 [MiraLAX Powder Bulk 17.9 Oz] 1 scoop PO DAILY PRN [History] Potassium Chloride [Klor-Con 10] 20 meq PO QID 07/27/17 [History] Diphenoxylate/Atropine [Lomotil 2.5 mg/0.025 mg] 2 tab PO QID 11/27/17 [History] OxyCODONE Immed Rel [Roxicodone 10 MG] 10 mg PO Q4H PRN 11/27/17 [History] Warfarin perPT [Coumadin perPT] 7 mg PO DAILY 11/27/17 [History] Allergies/Adverse Reactions: 3 Allergy/AdvReac Type Severity Reaction Status Date / Time Sulfa (Sulfonamide Allergy Mild Rash Verified 10/12/17 09:07 Antibiotics) Date of admission: 11/27/17 10:32 Primary care physician: Berto Bustamante MD - Patient Status Disposition: Transfer SNF Overall status at discharge: patient is progressing back to baseline - Discharge Instructions Follow Up With: Berto Bustamante MD [Primary Care Provider] - (patient will follow up with ECF PCP) Additional Instructions: Hold coumadin and resume on 12/04/2017 if INR is back to normal Check INR on 12/04/2017 - Diet and Activity Activity: increase activity as tolerated Diet: diabetic diet Hospital course: Mr. Franco is a 72 year old male sent to ER from [facility] for weakness and diarrhea. He also showed signs of confusion. In ER, CT abd shows colitis. Pt has chronic Munguia placed by urology and hx of complicated UTI with recent abx use. He was also found Flu A positive. He had signs of acute kidney failure. He was admitted to the hospitalist service. He was put on IV antibiotics initially. He was put on IV fluids. He tested positive for Noravirus from the stools. We ended up stopping his antibiotics. His diarrhea resolved during his hospital stay. We finished 5 days of Tamiflu for his influenza A. His Munguia was replaced as it was just placed on initial presentation. The patient mental status was back to baseline by the following day of his admission. After some hydration and treatment for his influenza, the patient was discharged to his nursing facility on 12/01. - Time Spent with Patient Total time spent providing and/or coordinating discharge services: Greater than 30 minutes - Constitutional Vitals: Temp Pulse Resp BP Pulse Ox 97.6 F 71 18 124/80 96 12/01/17 06:39 12/01/17 06:39 12/01/17 06:39 12/01/17 06:39 12/01/17 06:39 General appearance: Present: A&O X 1, no acute distress, answers questions appropriately Exam: GEN: NAD CVS: RRR. S1, S2, No m/r/g RESP: CTAB ABD: Soft, NT, ND, +BS EXT: No edema. 2+ DP. No rashes NEURO: Nonfocal
--- NOTE | 2017-12-01 10:44 | Physician Discharge Referral ---
ExtendedCare Referral Info Institutional Level of Care: Skilled - Diagnosis (1) Colitis Priority: Primary Status: Acute (2) Influenza A Priority: Primary Status: Acute (3) Renal failure (ARF), acute on chronic Priority: Primary Status: Acute (4) Metabolic encephalopathy Priority: Primary Status: Acute (5) Chronic diastolic CHF (congestive heart failure) Priority: Secondary Status: Acute (6) DM (diabetes mellitus), type 2 Priority: Secondary Status: Acute (7) History of atrial fibrillation Priority: Secondary Status: Acute (8) Malfunction of indwelling urinary catheter Priority: Primary Status: Acute - Transfer Medications Home Medications: Allopurinol [Zyloprim] 200 mg PO BID 06/14/15 [History] Digoxin [Lanoxin] 0.125 mg PO DAILY 06/14/15 [History] Diltiazem CD (24hr) [Cardizem CD] 120 mg PO DAILY 06/14/15 [History] Fenofibrate 54 mg PO DAILY 06/14/15 [History] Fluticasone Propionate Nasal [Flonase] 1 spray NS DAILY 06/14/15 [History] Gabapentin [Neurontin] 600 mg PO HS 06/14/15 [History] Metoprolol [Lopressor] 50 mg PO BID 06/14/15 [History] Montelukast [Singulair] 10 mg PO HS 06/14/15 [History] Omeprazole [PriLOSEC] 20 mg PO HS 06/14/15 [History] Tamsulosin [Flomax] 0.4 mg PO DAILY 06/14/15 [History] glipiZIDE [Glipizide] 15 mg PO DAILY 06/14/15 [History] Gabapentin [Neurontin] 300 mg PO BID 03/21/16 [History] Erythromycin OPTH Oint 1 appl BOTH EYES HS 02/06/17 [History] Furosemide [Lasix] 80 mg PO BID 02/06/17 [History] Guaifenesin [Mucinex] 600 mg PO BID 02/06/17 [History] Multivitamin [Multivitamins] 1 each PO DAILY 02/06/17 [History] Primidone [Mysoline] 150 mg PO BID 02/06/17 [History] Insulin DETEMIR [Levemir] 40 unit SQ HS 07/27/17 [History] Insulin Regular, Human [Novolin R] 10 unit SQ TID 07/27/17 [History] Lisinopril [Zestril] 5 mg PO DAILY 07/27/17 [History] Oxybutynin [Ditropan] 5 mg PO QID 07/27/17 [History] Polyethylene Glycol 3350 [MiraLAX Powder Bulk 17.9 Oz] 1 scoop PO DAILY PRN [History] Potassium Chloride [Klor-Con 10] 20 meq PO QID 07/27/17 [History] Diphenoxylate/Atropine [Lomotil 2.5 mg/0.025 mg] 2 tab PO QID 11/27/17 [History] OxyCODONE Immed Rel [Roxicodone 10 MG] 10 mg PO Q4H PRN 11/27/17 [History] Warfarin perPT [Coumadin perPT] 7 mg PO DAILY 11/27/17 [History] Allergies/Adverse Reactions: 3 Allergy/AdvReac Type Severity Reaction Status Date / Time Sulfa (Sulfonamide Allergy Mild Rash Verified 10/12/17 09:07 Antibiotics) - Respiratory Orders Smoking Cessation: Smoking cessation has been advised. For more information, call the [place] Tobacco Quit Line at 7-660-VDOB-NOW. - Lab Orders Lab Orders: Other (include drug levels w/frequency) (INR on 12/04/2017) - Rehabiliation Orders Rehab Orders: Evaluation for Physical Therapy - Treatments List/Other: Resume Coumadin on 12/04 if INR is in range (2-3) - Diet Orders Regular (diabetic) CERTIFICATION: I certify that the transfer of the above named patient to an Extended Care Facility is necessary for the continuing treatment of the diagnosis listed. The above information is true and accurate reflection of patient's current condition. Confidential - Redisclosure prohibited without a patient's written consent.
== END 2017-12-01 12:44 | DRG 391 ==
LOC: EMEROO 21:56 → 2ANU 21:56
PROVIDERS: ADMIT Internal Medicine; ATTEND Internal Medicine